=== PATIENT | male | born 1960 | race Caucasian/White ===

== ENCOUNTER → 2021-03-11 | Outpatient (CLI) | payer BC ==
[~2021-03-11] MED LIST: CLON0.3T PO; METO1TAB7 PO; ROSU5TAB5 PO; TORS20TA2 PO
== END ==
LOC: M LABSMTC 11:13
PROVIDERS: ATTEND Anesthesiology
DX: Z01.812 Encounter for preprocedural laboratory examination (principal); Z20.822 Contact with and (suspected) exposure to COVID-19

== ENCOUNTER 2021-03-16 08:09 | Day surgery (SDC) | payer BC, MEDICARE ==
[~2021-03-16] VITALS: Ht 172.7 cm; Wt 103.4 kg
[~2021-03-16 08:09] MED LIST changes: +LIDOCAINE 2% 100MG/5ML SDV (FOR ANES.) As Ordered ONE; +NS 1,000 ML IV ONE; +propofoL 200 MG/20 ML VIAL As Ordered ONE
[2021-03-16] MEDS ORDERED: AMPICILLIN SOD 1 GM in D5W MINI-BAG PLUS 50 ML IV ONE (09:00)
--- NOTE | 2021-03-16 11:07 | ROOR ---
Patient Name: Salvador Zelaya Procedure Date: 03/16/2021 10:20 AM Date of : 1960 Age: 60 Room: [facility] Gender: Male Note Status: Finalized Procedure: Colonoscopy Indications: Screening for colorectal malignant neoplasm Providers: Earnest Hill MD Referring MD: Giovani Cox DO Requesting Provider: Medicines: Monitored Anesthesia Care Complications: No immediate complications. Procedure: Pre-Anesthesia Assessment: - Prior to the procedure, a History and Physical was performed, and patient medications and allergies were reviewed. The patient is competent. The risks and benefits of the procedure and the sedation options and risks were discussed with the patient. All questions were answered and informed consent was obtained. Patient identification and proposed procedure were verified by the physician, the nurse and the anesthesiologist in the procedure room. Mental Status Examination: alert and oriented. Airway Examination: normal oropharyngeal airway and neck mobility. Respiratory Examination: clear to auscultation. CV Examination: normal. Prophylactic Antibiotics: The patient does not require prophylactic antibiotics. Prior Anticoagulants: The patient has taken no previous anticoagulant or antiplatelet agents. ASA Grade Assessment: II - A patient with mild systemic disease. After reviewing the risks and benefits, the patient was deemed in satisfactory condition to undergo the procedure. The anesthesia plan was to use monitored anesthesia care (MAC). Immediately prior to administration of medications, the patient was re-assessed for adequacy to receive sedatives. The heart rate, respiratory rate, oxygen saturations, blood pressure, adequacy of pulmonary ventilation, and response to care were monitored throughout the procedure. The physical status of the patient was re-assessed after the procedure. The Colonoscope was introduced through the anus and advanced to the cecum, identified by appendiceal orifice and ileocecal valve. The colonoscopy was performed without difficulty. The patient tolerated the procedure well. The quality of the bowel preparation was good. The ileocecal valve, appendiceal orifice, and rectum were photographed. Scope insertion time was 2 minutes. Scope withdrawal time was 9 minutes. The total duration of the procedure was 12 minutes. Findings: The perianal and digital rectal examinations were normal. The terminal ileum appeared normal. A large amount of semi-liquid stool was found from sigmoid to cecum, interfering with visualization. Lavage of the area was performed using a large amount, resulting in clearance with fair visualization. A 20 mm polyp was found in the hepatic flexure. The polyp was sessile. The polyp was removed with a hot snare. Resection and retrieval were complete. Verification of patient identification for the specimen was done by the physician and nurse using the patient's name, date and medical record number. Estimated blood loss was minimal. Two sessile polyps were found in the transverse colon. The polyps were 3 to 6 mm in size. These polyps were removed with a hot snare. Resection and retrieval were complete. Verification of patient identification for the specimen was done by the physician and nurse using the patient's name, date and medical record number. Estimated blood loss was minimal. Multiple small and large-mouthed diverticula were found in the sigmoid colon. There was no evidence of diverticular bleeding. Non-bleeding external and internal hemorrhoids were found during retroflexion. The hemorrhoids were medium-sized. Impression: - The examined portion of the ileum was normal. - Stool from sigmoid to cecum. - One 20 mm polyp at the hepatic flexure, removed with a hot snare. Resected and retrieved. - Two 3 to 6 mm polyps in the transverse colon, removed with a hot snare. Resected and retrieved. - Severe diverticulosis in the sigmoid colon. There was no evidence of diverticular bleeding. - Non-bleeding external and internal hemorrhoids. Recommendation: - Patient has a contact number available for emergencies. The signs and symptoms of potential delayed complications were discussed with the patient. Return to normal activities tomorrow. Written discharge instructions were provided to the patient. - High fiber diet. - Continue present medications. - Flagyl (metronidazole) 500 mg PO TID for 3 days. - Use fiber, for example Citrucel, Fibercon, Konsyl or Metamucil. - Await pathology results. - Repeat colonoscopy in 3 years for surveillance based on pathology results. - Telephone GI clinic for pathology results in 2 weeks. - Return to GI clinic if persistent symptoms or new symptoms. - Return to primary care physician. Procedure Code(s): --- Professional --- 07570, Colonoscopy, flexible; with removal of tumor(s), polyp(s), or other lesion(s) by snare technique Diagnosis Code(s): --- Professional --- K63.5, Polyp of colon Z12.11, Encounter for screening for malignant neoplasm of colon K64.8, Other hemorrhoids K57.30, Diverticulosis of large intestine without perforation or abscess without bleeding CPT copyright 2019 [employer]. All rights reserved. The codes documented in this report are preliminary and upon vending machine servicer review may be revised to meet current compliance requirements. Earnest Hill MD Earnest Hill MD 03/16/2021 11:06:50 AM Electronically signed by Earnest Hill MD Number of Addenda: 0 Note Initiated On: 03/16/2021 10:20 AM Estimated Blood Loss: Estimated blood loss was minimal.
[2021-03-16 11:35] VITALS: BP 164/74
== END 2021-03-16 11:30 | disposition home or self-care (01) ==
LOC: M OPP 08:09
PROVIDERS: ATTEND Internal Medicine Gastroenterology
DX: Z12.11 Encounter for screening for malignant neoplasm of colon (principal); K63.5 Polyp of colon; K57.30 Diverticulosis of large intestine without perforation or abscess without bleeding; K64.8 Other hemorrhoids; Z79.899 Other long term (current) drug therapy; N18.4 Chronic kidney disease, stage 4 (severe); Z99.2 Dependence on renal dialysis
CPT/HCPCS: 36415; 45385; 84132; 88305; J0290

== ENCOUNTER → 2021-12-23 | Outpatient (REF) | payer MEDICARE, BC ==
[~2021-12-23] MED LIST changes: -LIDOCAINE 2% 100MG/5ML SDV (FOR ANES.) As Ordered ONE; -NS 1,000 ML IV ONE; -propofoL 200 MG/20 ML VIAL As Ordered ONE
[2021-12-23 14:03] LABS: APPEARANCE, URINE HAZY (CLEAR); BACTERIA, URINE AUTO NEGATIVE (NEGATIVE); BILIRUBIN, URINE AUTO NEGATIVE (NEGATIVE); BLOOD, URINE BLOOD NEGATIVE (NEGATIVE); COLOR, URINE YELLOW (YELLOW); GLUCOSE, URINE (UA) AUTO 2+ mg/dL (NEGATIVE); KETONE, URINE AUTO NEGATIVE (NEGATIVE); LEUKOCYTE ESTERASE, URINE AUTO NEGATIVE (NEGATIVE); NITRITE, URINE AUTO NEGATIVE (NEGATIVE); PROTEIN, URINE AUTO 2+ mg/dL (NEGATIVE); RBC, URINE AUTO 1 /HPF (0-3); SPECIFIC GRAVITY URINE AUTO 1.012 (1.002-1.035); SQUAMOUS EPITHELIAL CELL UR AU 0 /HPF (0-6); UROBILINOGEN, URINE AUTO 0.2 mg/dL (0.0-2.0); WBC, URINE AUTO 8 /HPF (0-3)
== END ==
LOC: M SMT 13:05
PROVIDERS: ATTEND Nurse Practitioner Women's Health
DX: R30.9 Painful micturition, unspecified (principal)

== ENCOUNTER 2023-05-11 21:12 | Inpatient (IN) | payer MEDICARE, BC ==
[~2023-05-11] VITALS: Ht 167.6 cm; Wt 102.4 kg
[2023-05-11] MEDS: ROSUVASTATIN 10 MG TAB (CRESTOR) PO SCH (02:15)
[2023-05-11] MEDS: tiZANidine 4 MG TAB PO SCH (02:19)
[~2023-05-11 21:12] MED LIST changes: +CINA60TA3; +SEVE800T3
[2023-05-11] MEDS ORDERED: NS 1,000 ML IV ONE (21:25)
[2023-05-11] MEDS ORDERED: TIZA2CAP6 PO (21:30)
[2023-05-11] MEDS ORDERED: ZYRTTAB8 PO (21:30)
[2023-05-11] MEDS ORDERED: OMEG10002 PO (21:30)
[2023-05-11 21:46] LABS: VENOUS BASE EXCESS -5.3 (-2.0-2.0); VENOUS HCO3 21.9 MMOL/L (23.0-27.0); VENOUS O2 SATURATION 49.2 % (60.0-80.0); VENOUS PARTIAL PRESSURE CO2 49.4 mmHg (38.0-50.0); VENOUS PARTIAL PRESSURE O2 31.1 mmHg (30.0-50.0); VENOUS PH 7.264 UNITS (7.330-7.430); VENOUS STANDARD HCO3 19.2 MMOL/L; VENOUS TOTAL CO2 23.4 MMOL/L (24.0-28.0)
[2023-05-11 21:51] LABS: HEMATOCRIT 36.4 % (42.0-52.0); HEMOGLOBIN 11.6 g/dl (13.5-17.5); MEAN CORPUSCULAR HEMOGLOBIN 34.3 pg (27.0-33.0); MEAN CORPUSCULAR HGB CONC 31.9 g/dl (32.0-36.5); MEAN CORPUSCULAR VOLUME 107.7 fl (80.0-96.0); PLATELET COUNT, AUTOMATED 365 10^3/uL (150-450); RED BLOOD COUNT 3.38 10^6/uL (4.30-6.10); WHITE BLOOD COUNT 12.3 10^3/uL (4.0-10.0)
[2023-05-11] MEDS ORDERED: PIPERACILLIN/TAZOBACTAM SOD 4.5 GM in D5W MINI-BAG PLUS 50 ML IV ONE (21:55)
[2023-05-11] MEDS ORDERED: NS IV STA (21:55)
[2023-05-11] MEDS ORDERED: ISOVUE-370 76% 100ML VIAL As Ordered ONE (21:57)
[2023-05-11 22:03] LABS: INR 1.26; PROTHROMBIN TIME 15.4 SECONDS (12.5-14.5)
[2023-05-11 22:04] LABS: PARTIAL THROMBOPLASTIN TIME 27.3 SECONDS (24.8-34.2)
[2023-05-11 22:14] LABS: AMYLASE 84 U/L (30-118)
[2023-05-11 22:23] LABS: SOURCE, BODY FLUID PERITONEAL DIALYSATE
[2023-05-11 22:24] LABS: APPEARANCE, BODY FLUID CLEAR (CLEAR); PERITONEAL DIALYSATE FL COLOR COLORLESS (COLORLESS)
[2023-05-11 22:29] LABS: ALBUMIN 2.6 G/DL (3.2-5.2); ALKALINE PHOSPHATASE 126 U/L (46-116); ALT/SGPT 48 U/L (7.0-40); AST/SGOT 17 U/L (<34); BILIRUBIN,DIRECT 0.2 MG/DL (<0.4); BILIRUBIN,TOTAL 0.5 MG/DL (0.3-1.2); BLOOD UREA NITROGEN 43 MG/DL (9-23); CALCIUM LEVEL 9.5 MG/DL (8.3-10.6); CARBON DIOXIDE LEVEL 22 MMOL/L (20-31); CHLORIDE LEVEL 93 MMOL/L (98-107); CREATININE FOR GFR 10.78 MG/DL (0.70-1.30); GLOMERULAR FILTRATION RATE 5.2 (>49); GLUCOSE, FASTING 162 MG/DL (74-106); POTASSIUM SERUM 3.9 MMOL/L (3.5-5.1); SODIUM LEVEL 134 MMOL/L (136-145); TOTAL PROTEIN 5.6 G/DL (5.7-8.2)
[2023-05-11 22:31] LABS: SOURCE, BODY FLUID ALBUMIN PERITONEAL
[2023-05-11 22:33] LABS: LYMPHOCYTES 2 % (16-44); METAMYELOCYTES 8 % (0-0); MONOCYTES 6 % (0-5); MYELOCYTES 4 % (0-0); NEUTROPHILS 53 % (28-66); PLATELET ESTIMATE NORMAL (NORMAL); TOXIC VACUOLATION 1+
[2023-05-11 22:34] LABS: POLYCHROMASIA 1+
[2023-05-11 22:38] LABS: SOURCE, BODY FLUID TOT PROTEIN PERITONEAL; TOTAL PROTEIN, BODY FLUID < 2.0 G/DL (NOT ESTABLISHED)
[2023-05-11 22:44] LABS: SOURCE, BODY FLUID GLUCOSE PERITONEAL
[2023-05-11 22:54] LABS: PROCALCITONIN >50.00 ng/ml
[2023-05-12] VITALS (7 sets, daily range): BP systolic 92–138; BP diastolic 59–84; TEMP 97.1–98.6; O2SAT 91–96
[2023-05-12] MEDS ORDERED: VITMTA PO (01:27)
[2023-05-12] MEDS ORDERED: CETI-24 PO (01:27)
[2023-05-12] MEDS ORDERED: QUNO100C PO (01:27)
[2023-05-12] MEDS ORDERED: OMEG10002 PO (01:27)
[2023-05-12] MEDS ORDERED: SEVE800T3 PO (01:27)
[2023-05-12] MEDS ORDERED: SENS60TA PO (01:27)
[2023-05-12] MEDS ORDERED: ASPI-264 PO (01:27)
[2023-05-12] MEDS ORDERED: TIZA1TAB12 PO (01:27)
[2023-05-12] MEDS ORDERED: RESV1TAB PO (01:27)
[2023-05-12] MEDS ORDERED: HOME MED LIST COMPLETE! XX SCH (01:30)
[2023-05-12] MEDS ORDERED: NS 1,000 ML IV SCH (01:35)
[2023-05-12] MEDS: ACETAMINOPHEN TAB 650MG DOSE (2X325MG) PO PRN ×2 (02:14→10:35)
[2023-05-12] MEDS ORDERED: PILL CUTTER 1 EACH XX PRN (02:15)
[2023-05-12] MEDS ORDERED: MORPHINE 2 MG/ML 1ML VIAL IV ONE (03:00)
[2023-05-12 03:38] LABS: HEMATOCRIT 31.3 % (42.0-52.0); HEMOGLOBIN 10.4 g/dl (13.5-17.5); MEAN CORPUSCULAR HGB CONC 33.2 g/dl (32.0-36.5); MEAN CORPUSCULAR VOLUME 105.4 fl (80.0-96.0); PLATELET COUNT, AUTOMATED 290 10^3/uL (150-450); RED BLOOD COUNT 2.97 10^6/uL (4.30-6.10); WHITE BLOOD COUNT 12.9 10^3/uL (4.0-10.0)
[2023-05-12 04:02] LABS: ALBUMIN 2.2 G/DL (3.2-5.2); ALKALINE PHOSPHATASE 105 U/L (46-116); ALT/SGPT 40 U/L (7.0-40); AST/SGOT 20 U/L (<34); BILIRUBIN,TOTAL 0.5 MG/DL (0.3-1.2); BLOOD UREA NITROGEN 45 MG/DL (9-23); CALCIUM LEVEL 9.4 MG/DL (8.3-10.6); CARBON DIOXIDE LEVEL 23 MMOL/L (20-31); CHLORIDE LEVEL 95 MMOL/L (98-107); GLOMERULAR FILTRATION RATE 5.5 (>49); GLUCOSE, FASTING 110 MG/DL (74-106); MAGNESIUM LEVEL 1.5 MG/DL (1.8-2.4); POTASSIUM SERUM 4.7 MMOL/L (3.5-5.1); SODIUM LEVEL 133 MMOL/L (136-145)
[2023-05-12 04:36] LABS: ATYPICAL LYMPH 1 % (0-5); LYMPHOCYTES 1 % (16-44); METAMYELOCYTES 3 % (0-0); MONOCYTES 8 % (0-5); MYELOCYTES 3 % (0-0); NEUTROPHILS 61 % (28-66)
[2023-05-12 04:37] LABS: PLATELET ESTIMATE NORMAL (NORMAL)
[2023-05-12 04:38] LABS: TOXIC VACUOLATION 1+
[2023-05-12] MEDS: HEPARIN SOD (PORCINE) 5000UNITS/ML 1ML VIAL/SYRINGE SC SCH ×3 (05:22→22:07)
[2023-05-12] MEDS ORDERED: MAG SULF 1GM/100ML (MAG RUN) 1 GM in IV 1 EA IV ONE (07:00)
[2023-05-12 07:07] LABS: VANCOMYCIN RANDOM 11.2 UG/ML
[2023-05-12 07:25] LABS: PROCALCITONIN >50.00 ng/ml
[2023-05-12] MEDS: (RENVELA) SEVELAMER **CARBONate** 800 MG TAB PO SCH ×3 (08:00→17:50)
[2023-05-12] MEDS: CINACALCET 30 MG TAB (SENSIPAR) PO SCH ×2 (08:00→17:50)
[2023-05-12] MEDS ORDERED: VANCOMYCIN 1000MG/20ML VIAL IP ONE ×2 (08:00→22:00)
[2023-05-12] MEDS: PIPERACILLIN/TAZOBACTAM SOD 4.5 GM in D5W MINI-BAG PLUS 50 ML IV SCH ×2 (09:49→20:41)
[2023-05-12 15:04] LABS: APPEARANCE, BODY FLUID CLOUDY (CLEAR); PERITONEAL DIALYSATE FL COLOR COLORLESS (COLORLESS); SOURCE, BODY FLUID PERITONEAL DIALYSATE
[2023-05-12] MEDS: LR 1,000 ML IV SCH (15:56)
[2023-05-12] MEDS: GASTROGRAFIN SOLUTION 30ML PO SCH ×2 (15:56→16:39)
[2023-05-12] MEDS: tiZANidine 4 MG TAB PO SCH (20:41)
[2023-05-12] MEDS: ROSUVASTATIN 10 MG TAB (CRESTOR) PO SCH (20:41)
[2023-05-13 03:34] VITALS: BP 122/59; TEMP 97.2; O2SAT 100
[2023-05-13] MEDS: HEPARIN SOD (PORCINE) 5000UNITS/ML 1ML VIAL/SYRINGE SC SCH ×3 (06:15→22:07)
[2023-05-13 06:26] LABS: HEMOGLOBIN 9.2 g/dl (13.5-17.5); MEAN CORPUSCULAR HEMOGLOBIN 34.3 pg (27.0-33.0); MEAN CORPUSCULAR HGB CONC 32.9 g/dl (32.0-36.5); MEAN CORPUSCULAR VOLUME 104.5 fl (80.0-96.0); PLATELET COUNT, AUTOMATED 269 10^3/uL (150-450); RED BLOOD COUNT 2.68 10^6/uL (4.30-6.10); WHITE BLOOD COUNT 13.9 10^3/uL (4.0-10.0)
[2023-05-13 06:55] LABS: CALCIUM LEVEL 9.7 MG/DL (8.3-10.6); CREATININE FOR GFR 9.56 MG/DL (0.70-1.30); MAGNESIUM LEVEL 1.8 MG/DL (1.8-2.4); POTASSIUM SERUM 4.6 MMOL/L (3.5-5.1)
[2023-05-13 07:01] LABS: PROCALCITONIN >50.00 ng/ml
[2023-05-13 07:33] LABS: ATYPICAL LYMPH 5 % (0-5); EOSINOPHILS 1 % (0-3); LYMPHOCYTES 2 % (16-44); METAMYELOCYTES 1 % (0-0); MONOCYTES 5 % (0-5); NEUTROPHILS 80 % (28-66); PLATELET ESTIMATE NORMAL (NORMAL)
[2023-05-13] MEDS: (RENVELA) SEVELAMER **CARBONate** 800 MG TAB PO SCH ×3 (08:00→17:06)
[2023-05-13] MEDS: CINACALCET 30 MG TAB (SENSIPAR) PO SCH ×2 (08:00→17:06)
[2023-05-13] MEDS ORDERED: PANTOPRAZOLE 40MG VIAL IV ONE (08:00)
[2023-05-13 09:10] LABS: APPEARANCE, BODY FLUID HAZY (CLEAR); PERITONEAL FL COLOR COLORLESS (COLORLESS); SOURCE, BODY FLUID PERITONEAL
[2023-05-13] MEDS: PIPERACILLIN/TAZOBACTAM SOD 4.5 GM in D5W MINI-BAG PLUS 50 ML IV SCH ×2 (09:12→20:26)
[2023-05-13] MEDS ORDERED: HEPARIN SOD (PORCINE) 5000UNITS/ML 1ML VIAL/SYRINGE IP ONE (10:50)
[2023-05-13 12:25] VITALS: BP 139/83; TEMP 97.6; O2SAT 98
[2023-05-13 15:58] VITALS: BP 130/80; TEMP 98.5; O2SAT 98
[2023-05-13] MEDS: LR 1,000 ML IV SCH (16:26)
[2023-05-13 19:17] VITALS: BP 135/78; TEMP 97.5; O2SAT 97
[2023-05-13] MEDS: PANTOPRAZOLE 40MG VIAL IV SCH (20:26)
[2023-05-13] MEDS: ROSUVASTATIN 10 MG TAB (CRESTOR) PO SCH (20:26)
[2023-05-13] MEDS: tiZANidine 4 MG TAB PO SCH (20:27)
[2023-05-13 23:17] VITALS: BP 143/75; TEMP 97.4; O2SAT 94
[2023-05-14 03:21] VITALS: BP 124/73; TEMP 97.3; O2SAT 94
[2023-05-14] MEDS: HEPARIN SOD (PORCINE) 5000UNITS/ML 1ML VIAL/SYRINGE SC SCH ×3 (05:21→22:48)
[2023-05-14 06:51] LABS: SOURCE, BODY FLUID PERITONEAL DIALYSATE
[2023-05-14 06:52] LABS: APPEARANCE, BODY FLUID CLOUDY (CLEAR)
[2023-05-14] MEDS: (RENVELA) SEVELAMER **CARBONate** 800 MG TAB PO SCH ×3 (08:00→18:00)
[2023-05-14] MEDS: CINACALCET 30 MG TAB (SENSIPAR) PO SCH ×2 (08:00→18:00)
[2023-05-14 08:30] VITALS: BP 144/85; TEMP 97.8; O2SAT 93
[2023-05-14] MEDS: PIPERACILLIN/TAZOBACTAM SOD 4.5 GM in D5W MINI-BAG PLUS 50 ML IV SCH ×2 (09:32→20:00)
[2023-05-14] MEDS: PANTOPRAZOLE 40MG VIAL IV SCH ×2 (09:32→20:00)
[2023-05-14] MEDS ORDERED: HEPARIN SOD (PORCINE) 5000UNITS/ML 1ML VIAL/SYRINGE PD ONE (09:55)
[2023-05-14 10:23] LABS: BASO % 0.2 % (0.0-1.0); EOS # 0.2 10^3/uL (0.0-0.5); EOS % 1.3 % (0.0-3.0); HEMATOCRIT 28.7 % (42.0-52.0); HEMOGLOBIN 9.4 g/dl (13.5-17.5); LYMPH # 0.5 10^3/uL (1.5-5.0); LYMPH % 3.5 % (24.0-44.0); MEAN CORPUSCULAR HEMOGLOBIN 33.9 pg (27.0-33.0); MEAN CORPUSCULAR HGB CONC 32.8 g/dl (32.0-36.5); MEAN CORPUSCULAR VOLUME 103.6 fl (80.0-96.0); MONO # 1.1 10^3/uL (0.0-0.8); MONO % 8.3 % (2.0-8.0); NEUTROPHILS % 85.9 % (36.0-66.0); PLATELET COUNT, AUTOMATED 280 10^3/uL (150-450); RED BLOOD COUNT 2.77 10^6/uL (4.30-6.10); WHITE BLOOD COUNT 12.8 10^3/uL (4.0-10.0)
[2023-05-14 10:51] LABS: VANCOMYCIN RANDOM 16.8 UG/ML
[2023-05-14 11:10] LABS: BLOOD UREA NITROGEN 60 MG/DL (9-23); CALCIUM LEVEL 10.9 MG/DL (8.3-10.6); CARBON DIOXIDE LEVEL 25 MMOL/L (20-31); CHLORIDE LEVEL 93 MMOL/L (98-107); CREATININE FOR GFR 8.91 MG/DL (0.70-1.30); GLOMERULAR FILTRATION RATE 6.4 (>49); GLUCOSE, FASTING 102 MG/DL (74-106); POTASSIUM SERUM 4.2 MMOL/L (3.5-5.1); PROCALCITONIN >50.00 ng/ml; SODIUM LEVEL 131 MMOL/L (136-145)
[2023-05-14 11:55] VITALS: BP 137/74; TEMP 97.7; O2SAT 94
[2023-05-14] MEDS: LR 1,000 ML IV SCH (15:00)
[2023-05-14 15:43] VITALS: BP 159/84; TEMP 97.2; O2SAT 94
[2023-05-14] MEDS: ROSUVASTATIN 10 MG TAB (CRESTOR) PO SCH (20:00)
[2023-05-14] MEDS: tiZANidine 4 MG TAB PO SCH (20:00)
[2023-05-14 20:13] VITALS: BP 147/86; TEMP 97.5; O2SAT 96
[2023-05-14] MEDS ORDERED: VANCOMYCIN 1000MG/20ML VIAL IP ONE (22:00)
[2023-05-14] MEDS ORDERED: GENTAMICIN SULF 80MG/2ML VIAL IP ONE (22:00)
[2023-05-15] VITALS: BP 143/83; TEMP 97.8; O2SAT 96
[2023-05-15] MEDS: LR 1,000 ML IV SCH (03:20)
[2023-05-15 03:46] VITALS: BP 145/82; TEMP 97.8; O2SAT 95
[2023-05-15 06:05] LABS: BASO % 0.2 % (0.0-1.0); EOS # 0.3 10^3/uL (0.0-0.5); EOS % 2.4 % (0.0-3.0); HEMOGLOBIN 8.6 g/dl (13.5-17.5); LYMPH # 0.5 10^3/uL (1.5-5.0); LYMPH % 4.3 % (24.0-44.0); MEAN CORPUSCULAR HEMOGLOBIN 34.5 pg (27.0-33.0); MEAN CORPUSCULAR HGB CONC 33.1 g/dl (32.0-36.5); MEAN CORPUSCULAR VOLUME 104.4 fl (80.0-96.0); MONO # 1.2 10^3/uL (0.0-0.8); MONO % 10.5 % (2.0-8.0); NEUTROPHILS # 9.5 10^3/uL (1.5-8.5); NEUTROPHILS % 80.7 % (36.0-66.0); PLATELET COUNT, AUTOMATED 265 10^3/uL (150-450); RED BLOOD COUNT 2.49 10^6/uL (4.30-6.10); WHITE BLOOD COUNT 11.8 10^3/uL (4.0-10.0)
[2023-05-15] MEDS: HEPARIN SOD (PORCINE) 5000UNITS/ML 1ML VIAL/SYRINGE SC SCH ×3 (06:21→22:20)
[2023-05-15 06:42] LABS: BLOOD UREA NITROGEN 56 MG/DL (9-23); CARBON DIOXIDE LEVEL 29 MMOL/L (20-31); CHLORIDE LEVEL 94 MMOL/L (98-107); CREATININE FOR GFR 8.48 MG/DL (0.70-1.30); GLOMERULAR FILTRATION RATE 6.8 (>49); GLUCOSE, FASTING 81 MG/DL (74-106); POTASSIUM SERUM 4.1 MMOL/L (3.5-5.1); PROCALCITONIN >50.00 ng/ml; SODIUM LEVEL 133 MMOL/L (136-145)
[2023-05-15 07:43] VITALS: BP 129/75; TEMP 96.8; O2SAT 94
[2023-05-15 07:56] LABS: APPEARANCE, BODY FLUID HAZY (CLEAR); PERITONEAL DIALYSATE FL COLOR PALE YELLOW (COLORLESS); SOURCE, BODY FLUID PERITONEAL DIALYSATE
[2023-05-15] MEDS: CINACALCET 30 MG TAB (SENSIPAR) PO SCH ×2 (08:00→17:36)
[2023-05-15] MEDS: (RENVELA) SEVELAMER **CARBONate** 800 MG TAB PO SCH ×3 (08:00→17:36)
[2023-05-15] MEDS: PIPERACILLIN/TAZOBACTAM SOD 4.5 GM in D5W MINI-BAG PLUS 50 ML IV SCH (09:54)
[2023-05-15] MEDS: PANTOPRAZOLE 40MG VIAL IV SCH ×2 (09:54→20:31)
[2023-05-15 12:15] VITALS: BP 120/100; TEMP 98.1; O2SAT 94
[2023-05-15] MEDS ORDERED: ceFAZolin SOD 2 GM in IV 1 EA XX SCH (15:35)
[2023-05-15 16:28] VITALS: BP 146/81; TEMP 97.1; O2SAT 97
[2023-05-15] MEDS: ceFAZolin 1GM VIAL IP SCH (18:17)
[2023-05-15] MEDS: FLUCONAZOLE 100 MG TAB PO SCH (18:17)
[2023-05-15 20:00] VITALS: BP 155/85; TEMP 97.5; O2SAT 94
[2023-05-15] MEDS: ROSUVASTATIN 10 MG TAB (CRESTOR) PO SCH (20:31)
[2023-05-15] MEDS: tiZANidine 4 MG TAB PO SCH (20:31)
[2023-05-16] VITALS (7 sets, daily range): BP systolic 130–162; BP diastolic 75–98; TEMP 94.1–97.5; O2SAT 94–96
[2023-05-16 05:25] LABS: BASO % 0.2 % (0.0-1.0); EOS # 0.3 10^3/uL (0.0-0.5); EOS % 2.5 % (0.0-3.0); HEMATOCRIT 27.6 % (42.0-52.0); HEMOGLOBIN 9.1 g/dl (13.5-17.5); LYMPH # 0.6 10^3/uL (1.5-5.0); LYMPH % 5.1 % (24.0-44.0); MEAN CORPUSCULAR HEMOGLOBIN 34.1 pg (27.0-33.0); MEAN CORPUSCULAR VOLUME 103.4 fl (80.0-96.0); MONO # 1.4 10^3/uL (0.0-0.8); NEUTROPHILS # 8.2 10^3/uL (1.5-8.5); NEUTROPHILS % 74.7 % (36.0-66.0); PLATELET COUNT, AUTOMATED 243 10^3/uL (150-450); RED BLOOD COUNT 2.67 10^6/uL (4.30-6.10)
[2023-05-16 05:50] LABS: C REACTIVE PROTEIN QUANTITATIV 15.3 MG/DL (<1.0)
[2023-05-16 05:51] LABS: CALCIUM LEVEL 9.8 MG/DL (8.3-10.6); CREATININE FOR GFR 7.99 MG/DL (0.70-1.30); GLOMERULAR FILTRATION RATE 7.3 (>49); MAGNESIUM LEVEL 1.9 MG/DL (1.8-2.4); POTASSIUM SERUM 3.5 MMOL/L (3.5-5.1)
[2023-05-16 05:58] LABS: PROCALCITONIN 41.61 ng/ml
[2023-05-16] MEDS: HEPARIN SOD (PORCINE) 5000UNITS/ML 1ML VIAL/SYRINGE SC SCH ×3 (07:54→23:13)
[2023-05-16] MEDS: CINACALCET 30 MG TAB (SENSIPAR) PO SCH ×2 (08:00→18:07)
[2023-05-16] MEDS: (RENVELA) SEVELAMER **CARBONate** 800 MG TAB PO SCH ×3 (08:00→18:07)
[2023-05-16] MEDS: PANTOPRAZOLE 40MG VIAL IV SCH ×2 (08:00→20:36)
[2023-05-16 08:14] LABS: APPEARANCE, BODY FLUID HAZY (CLEAR); PERITONEAL DIALYSATE FL COLOR COLORLESS (COLORLESS); SOURCE, BODY FLUID PERITONEAL DIALYSATE
[2023-05-16] MEDS: POTASSIUM CHLORIDE 10MEQ SR TABLET PO SCH ×3 (11:24→20:35)
[2023-05-16] MEDS ORDERED: ISOVUE-370 76% 100ML VIAL As Ordered ONE (11:39)
[2023-05-16] MEDS: GASTROGRAFIN SOLUTION 30ML PO SCH ×2 (12:42→13:11)
[2023-05-16] MEDS: ACETAMINOPHEN TAB 650MG DOSE (2X325MG) PO PRN (15:00)
[2023-05-16] MEDS: ceFAZolin 1GM VIAL IP SCH (18:21)
[2023-05-16] MEDS: ROSUVASTATIN 10 MG TAB (CRESTOR) PO SCH (20:36)
[2023-05-16] MEDS: tiZANidine 4 MG TAB PO SCH (20:36)
[2023-05-16] MEDS ORDERED: GENTAMICIN SULF 80MG/2ML VIAL IP ONE (22:00)
[2023-05-17] VITALS: BP 144/82; TEMP 97.3; O2SAT 96
[2023-05-17] MEDS: ACETAMINOPHEN TAB 650MG DOSE (2X325MG) PO PRN (00:12)
[2023-05-17 04:00] VITALS: BP 138/86; TEMP 97.8; O2SAT 96
[2023-05-17 06:26] LABS: HEMATOCRIT 27.5 % (42.0-52.0); HEMOGLOBIN 9.2 g/dl (13.5-17.5); MEAN CORPUSCULAR HEMOGLOBIN 35.1 pg (27.0-33.0); MEAN CORPUSCULAR HGB CONC 33.5 g/dl (32.0-36.5); PLATELET COUNT, AUTOMATED 277 10^3/uL (150-450); RED BLOOD COUNT 2.62 10^6/uL (4.30-6.10); WHITE BLOOD COUNT 12.4 10^3/uL (4.0-10.0)
[2023-05-17] MEDS: HEPARIN SOD (PORCINE) 5000UNITS/ML 1ML VIAL/SYRINGE SC SCH ×3 (06:54→21:03)
[2023-05-17 06:56] LABS: ANISOCYTOSIS 1+; ATYPICAL LYMPH 2 % (0-5); BASOPHILS 1 % (0-1); EOSINOPHILS 2 % (0-3); LYMPHOCYTES 9 % (16-44); MONOCYTES 15 % (0-5); NEUTROPHILS 71 % (28-66); PLATELET ESTIMATE NORMAL (NORMAL); POIKILOCYTOSIS 1+
[2023-05-17 06:59] LABS: C REACTIVE PROTEIN QUANTITATIV 17.1 MG/DL (<1.0)
[2023-05-17 07:00] LABS: CREATININE FOR GFR 7.9 MG/DL (0.70-1.30); GLOMERULAR FILTRATION RATE 7.4 (>49); MAGNESIUM LEVEL 1.8 MG/DL (1.8-2.4); POTASSIUM SERUM 3.7 MMOL/L (3.5-5.1)
[2023-05-17 07:12] LABS: PROCALCITONIN 24.12 ng/ml
[2023-05-17 07:20] VITALS: BP 150/84; TEMP 97.5; O2SAT 97
[2023-05-17 07:55] LABS: APPEARANCE, BODY FLUID HAZY (CLEAR); PERITONEAL DIALYSATE FL COLOR PALE YELLOW (COLORLESS); SOURCE, BODY FLUID PERITONEAL DIALYSATE
[2023-05-17] MEDS: (RENVELA) SEVELAMER **CARBONate** 800 MG TAB PO SCH ×3 (08:05→17:08)
[2023-05-17] MEDS: CINACALCET 30 MG TAB (SENSIPAR) PO SCH ×2 (08:05→17:08)
[2023-05-17] MEDS: PANTOPRAZOLE 40MG VIAL IV SCH ×2 (08:06→21:03)
[2023-05-17] MEDS: POTASSIUM CHLORIDE 10MEQ SR TABLET PO SCH ×3 (08:06→21:03)
[2023-05-17 11:50] VITALS: BP 162/84; TEMP 98.3; O2SAT 95
[2023-05-17 13:52] LABS: CLOSTRIDIUM DIFFICILE PCR NEGATIVE (NEGATIVE)
[2023-05-17 16:50] VITALS: BP 138/88; TEMP 97.6; O2SAT 96
[2023-05-17] MEDS: LACTOBACILLUS ACIDOPHILUS CAP (BACID) PO SCH ×2 (17:01→21:03)
[2023-05-17] MEDS: FLUCONAZOLE 100 MG TAB PO SCH (17:01)
[2023-05-17] MEDS: ceFAZolin 1GM VIAL IP SCH (18:16)
[2023-05-17 19:33] VITALS: BP 127/74; TEMP 97.1; O2SAT 96
[2023-05-17] MEDS: ROSUVASTATIN 10 MG TAB (CRESTOR) PO SCH (21:03)
[2023-05-17] MEDS: tiZANidine 4 MG TAB PO SCH (21:03)
[2023-05-18] VITALS (7 sets, daily range): BP systolic 128–147; BP diastolic 70–90; TEMP 97.5–98.4; O2SAT 94–98
[2023-05-18 05:39] LABS: HEMATOCRIT 26.2 % (42.0-52.0); HEMOGLOBIN 8.6 g/dl (13.5-17.5); MEAN CORPUSCULAR HEMOGLOBIN 34.3 pg (27.0-33.0); MEAN CORPUSCULAR HGB CONC 32.8 g/dl (32.0-36.5); MEAN CORPUSCULAR VOLUME 104.4 fl (80.0-96.0); PLATELET COUNT, AUTOMATED 307 10^3/uL (150-450); RED BLOOD COUNT 2.51 10^6/uL (4.30-6.10); WHITE BLOOD COUNT 11.2 10^3/uL (4.0-10.0)
[2023-05-18 06:01] LABS: C REACTIVE PROTEIN QUANTITATIV 15.5 MG/DL (<1.0)
[2023-05-18 06:08] LABS: PROCALCITONIN 16.45 ng/ml
[2023-05-18 06:15] LABS: CALCIUM LEVEL 8.7 MG/DL (8.3-10.6); CREATININE FOR GFR 8.01 MG/DL (0.70-1.30); GLOMERULAR FILTRATION RATE 7.3 (>49); MAGNESIUM LEVEL 1.7 MG/DL (1.8-2.4); POTASSIUM SERUM 3.8 MMOL/L (3.5-5.1)
[2023-05-18 06:32] LABS: ANISOCYTOSIS 1+; EOSINOPHILS 3 % (0-3); LYMPHOCYTES 5 % (16-44); METAMYELOCYTES 3 % (0-0); MONOCYTES 10 % (0-5); NEUTROPHILS 78 % (28-66); PLATELET ESTIMATE NORMAL (NORMAL)
[2023-05-18] MEDS: HEPARIN SOD (PORCINE) 5000UNITS/ML 1ML VIAL/SYRINGE SC SCH (06:40)
[2023-05-18] MEDS ORDERED: MAGNESIUM OXIDE 400MG TAB (MAG-OX) PO ONE (07:30)
[2023-05-18 07:35] LABS: APPEARANCE, BODY FLUID CLEAR (CLEAR); PERITONEAL DIALYSATE FL COLOR COLORLESS (COLORLESS); SOURCE, BODY FLUID PERITONEAL DIALYSATE
[2023-05-18] MEDS: (RENVELA) SEVELAMER **CARBONate** 800 MG TAB PO SCH ×3 (07:55→17:55)
[2023-05-18] MEDS: CINACALCET 30 MG TAB (SENSIPAR) PO SCH ×2 (07:55→17:55)
[2023-05-18] MEDS: POTASSIUM CHLORIDE 10MEQ SR TABLET PO SCH ×3 (08:02→20:32)
[2023-05-18] MEDS: LACTOBACILLUS ACIDOPHILUS CAP (BACID) PO SCH ×4 (08:02→20:32)
[2023-05-18] MEDS: PANTOPRAZOLE 40MG VIAL IV SCH ×2 (08:02→20:31)
[2023-05-18] MEDS: ceFAZolin 1GM VIAL IP SCH (18:07)
[2023-05-18] MEDS: tiZANidine 4 MG TAB PO SCH (20:31)
[2023-05-18] MEDS: ROSUVASTATIN 10 MG TAB (CRESTOR) PO SCH (20:32)
[2023-05-19] VITALS (10 sets, daily range): BP systolic 113–141; BP diastolic 63–85; TEMP 96.9–98.1; O2SAT 93–96
[2023-05-19 04:50] LABS: BASO % 0.2 % (0.0-1.0); EOS # 0.3 10^3/uL (0.0-0.5); EOS % 2.1 % (0.0-3.0); HEMATOCRIT 26.5 % (42.0-52.0); HEMOGLOBIN 8.9 g/dl (13.5-17.5); LYMPH # 0.6 10^3/uL (1.5-5.0); MEAN CORPUSCULAR HEMOGLOBIN 34.5 pg (27.0-33.0); MEAN CORPUSCULAR HGB CONC 33.6 g/dl (32.0-36.5); MEAN CORPUSCULAR VOLUME 102.7 fl (80.0-96.0); MONO # 1.1 10^3/uL (0.0-0.8); MONO % 9.1 % (2.0-8.0); NEUTROPHILS # 9.6 10^3/uL (1.5-8.5); NEUTROPHILS % 78.9 % (36.0-66.0); PLATELET COUNT, AUTOMATED 345 10^3/uL (150-450); RED BLOOD COUNT 2.58 10^6/uL (4.30-6.10); WHITE BLOOD COUNT 12.2 10^3/uL (4.0-10.0)
[2023-05-19 05:06] LABS: C REACTIVE PROTEIN QUANTITATIV 14.1 MG/DL (<1.0)
[2023-05-19 05:07] LABS: CREATININE FOR GFR 7.97 MG/DL (0.70-1.30); GLOMERULAR FILTRATION RATE 7.3 (>49); MAGNESIUM LEVEL 1.7 MG/DL (1.8-2.4); POTASSIUM SERUM 3.7 MMOL/L (3.5-5.1)
[2023-05-19 05:15] LABS: PROCALCITONIN 10.64 ng/ml
[2023-05-19] MEDS ORDERED: MAGNESIUM OXIDE 400MG TAB (MAG-OX) PO ONE (07:15)
[2023-05-19 07:46] LABS: SOURCE, BODY FLUID PERITONEAL DIALYSATE
[2023-05-19 07:47] LABS: APPEARANCE, BODY FLUID HAZY (CLEAR); PERITONEAL DIALYSATE FL COLOR PALE YELLOW (COLORLESS)
[2023-05-19] MEDS: CINACALCET 30 MG TAB (SENSIPAR) PO SCH ×2 (08:00→18:33)
[2023-05-19] MEDS: (RENVELA) SEVELAMER **CARBONate** 800 MG TAB PO SCH ×3 (08:00→18:33)
[2023-05-19] MEDS: LACTOBACILLUS ACIDOPHILUS CAP (BACID) PO SCH ×3 (08:00→18:33)
[2023-05-19] MEDS: POTASSIUM CHLORIDE 10MEQ SR TABLET PO SCH ×2 (09:19→15:50)
[2023-05-19] MEDS: PANTOPRAZOLE 40MG VIAL IV SCH (09:19)
[2023-05-19] MEDS ORDERED: LIDOCAINE 1% MDV 20ML VIAL As Ordered ONE (10:00)
[2023-05-19] MEDS ORDERED: HEPARIN 1,000UNITS/ML 10ML VIAL (FOR RADIOLOGY & DIALYSIS ONLY) As Ordered ONE (10:00)
[2023-05-19] MEDS ORDERED: fentaNYL 100 MCG/2 ML INJECTION As Ordered ONE ×2 (10:59→12:12)
[2023-05-19] MEDS ORDERED: MIDAZOLAM INJ 2MG/2ML VIAL As Ordered ONE ×2 (10:59→12:12)
[2023-05-19] MEDS ORDERED: ONDANSETRON 4MG 2ML VIAL As Ordered ONE (12:11)
[2023-05-19] MEDS ORDERED: ROCURONIUM BROMIDE 50MG/5ML VIAL As Ordered ONE (12:11)
[2023-05-19] MEDS ORDERED: LIDOCAINE 2% 100MG/5ML SDV (FOR ANES.) As Ordered ONE (12:11)
[2023-05-19] MEDS ORDERED: SUGAMMADEX SODIUM 500 MG/5 ML VIAL (BRIDION) As Ordered ONE (12:11)
[2023-05-19] MEDS ORDERED: propofoL 200 MG/20 ML VIAL As Ordered ONE (12:11)
[2023-05-19] MEDS ORDERED: dexmedeTOMIDine (4MCG/ML)200MCG/50ML BTL (PRECEDEX) As Ordered ONE (12:12)
[2023-05-19] MEDS ORDERED: ACETAMINOPHEN 1000MG 100ML IV BAG As Ordered ONE (12:12)
[2023-05-19 12:47] LABS: VANCOMYCIN RANDOM 13.2 UG/ML
[2023-05-19] MEDS ORDERED: LIDOCAINE W/EPINEPHRINE 1% 20ML VIAL As Ordered ONE (13:00)
[2023-05-19] MEDS ORDERED: PHENYLephrine 500MCG 5ML (100MCG/ML) SYRINGE As Ordered ONE (13:51)
[2023-05-19] MEDS ORDERED: oxyCODONE 5MG TAB PO PRN (14:25)
[2023-05-19] MEDS ORDERED: HYDROMORPHONE HCL 0.5 MG/ 0.5 ML SYRINGE IV PRN (14:25)
[2023-05-19] MEDS ORDERED: LR 1,000 ML IV SCH (14:25)
[2023-05-19] MEDS ORDERED: ONDANSETRON 4MG 2ML VIAL IV PRN (14:25)
[2023-05-19] MEDS ORDERED: fentaNYL 100 MCG/2 ML INJECTION IV PRN (14:25)
[2023-05-19] MEDS: FLUCONAZOLE 100 MG TAB PO SCH (17:54)
[2023-05-19] MEDS ORDERED: VANCOMYCIN HCL 1,000 MG, VIAL MATE ADAPTER 1 EACH in D5W 250 ML IV ONE (18:00)
[2023-05-20] MEDS: ACETAMINOPHEN TAB 650MG DOSE (2X325MG) PO PRN ×3 (00:36→22:01)
[2023-05-20] MEDS: tiZANidine 4 MG TAB PO SCH ×2 (00:36→20:20)
[2023-05-20] MEDS: ROSUVASTATIN 10 MG TAB (CRESTOR) PO SCH ×2 (00:36→20:19)
[2023-05-20] MEDS: LACTOBACILLUS ACIDOPHILUS CAP (BACID) PO SCH ×5 (00:37→20:19)
[2023-05-20] MEDS: POTASSIUM CHLORIDE 10MEQ SR TABLET PO SCH ×2 (00:37→07:48)
[2023-05-20] MEDS: ceFAZolin SOD 1 GM in D5W MINI-BAG PLUS 50 ML IV SCH ×2 (00:38→20:20)
[2023-05-20] MEDS: PANTOPRAZOLE 40MG VIAL IV SCH ×3 (00:38→20:19)
[2023-05-20 03:44] VITALS: BP 132/63; TEMP 96.5; O2SAT 97
[2023-05-20] MEDS ORDERED: HEPARIN 1,000UNITS/ML 10ML VIAL (FOR RADIOLOGY & DIALYSIS ONLY) XX SCH (06:45)
[2023-05-20] MEDS ORDERED: SODIUM CHLORIDE 0.9% 1000ML IV PRN (06:45)
[2023-05-20] MEDS ORDERED: DARBEPOETIN 200MCG/0.4ML *DIALYSIS* SYRINGE IV SCH (06:45)
[2023-05-20] MEDS ORDERED: HEPARIN 1,000UNITS/ML 10ML VIAL (FOR RADIOLOGY & DIALYSIS ONLY) IV PRN (06:45)
[2023-05-20 07:36] LABS: BASO % 0.1 % (0.0-1.0); EOS % 0.2 % (0.0-3.0); HEMOGLOBIN 8.2 g/dl (13.5-17.5); LYMPH # 0.5 10^3/uL (1.5-5.0); LYMPH % 2.7 % (24.0-44.0); MEAN CORPUSCULAR HEMOGLOBIN 34.7 pg (27.0-33.0); MEAN CORPUSCULAR HGB CONC 32.8 g/dl (32.0-36.5); MEAN CORPUSCULAR VOLUME 105.9 fl (80.0-96.0); MONO # 0.9 10^3/uL (0.0-0.8); MONO % 5.4 % (2.0-8.0); NEUTROPHILS # 15.6 10^3/uL (1.5-8.5); PLATELET COUNT, AUTOMATED 373 10^3/uL (150-450); RED BLOOD COUNT 2.36 10^6/uL (4.30-6.10); WHITE BLOOD COUNT 17.5 10^3/uL (4.0-10.0)
[2023-05-20] MEDS: (RENVELA) SEVELAMER **CARBONate** 800 MG TAB PO SCH ×3 (07:47→18:19)
[2023-05-20] MEDS: CINACALCET 30 MG TAB (SENSIPAR) PO SCH ×2 (07:47→18:18)
[2023-05-20 08:00] VITALS: BP 133/68; TEMP 96.6; O2SAT 97
[2023-05-20 08:11] LABS: HEPATITIS B SURFACE ANTIBODY POSITIVE (POSITIVE)
[2023-05-20 08:43] LABS: HEPATITIS C VIRUS ABY INDEX 0.17 INDEX (<0.8)
[2023-05-20 08:44] LABS: HEPATITIS B CORE ANTIBODY IGM NEGATIVE (NEGATIVE)
[2023-05-20 08:50] LABS: BLOOD UREA NITROGEN 49 MG/DL (9-23); CALCIUM LEVEL 8.4 MG/DL (8.3-10.6); CARBON DIOXIDE LEVEL 25 MMOL/L (20-31); CHLORIDE LEVEL 96 MMOL/L (98-107); CREATININE FOR GFR 8.93 MG/DL (0.70-1.30); GLOMERULAR FILTRATION RATE 6.4 (>49); GLUCOSE, FASTING 90 MG/DL (74-106); POTASSIUM SERUM 4.7 MMOL/L (3.5-5.1); SODIUM LEVEL 132 MMOL/L (136-145)
[2023-05-20 15:57] VITALS: BP 131/71; TEMP 97; O2SAT 95
[2023-05-20] MEDS ORDERED: VANCOMYCIN HCL 1,000 MG, VIAL MATE ADAPTER 1 EACH in NS 250 ML IV SCH (16:00)
[2023-05-20] MEDS: FLUCONAZOLE 100 MG TAB PO SCH (18:19)
[2023-05-20 20:55] VITALS: BP 138/80; TEMP 97.7; O2SAT 100
[2023-05-20 22:57] VITALS: BP 123/79; TEMP 97.7; O2SAT 96
[2023-05-21 06:40] VITALS: BP 125/80; TEMP 97.9; O2SAT 96
[2023-05-21] MEDS ORDERED: HEPARIN 1,000UNITS/ML 10ML VIAL (FOR RADIOLOGY & DIALYSIS ONLY) XX SCH (06:55)
[2023-05-21] MEDS ORDERED: SODIUM CHLORIDE 0.9% 1000ML IV PRN (06:55)
[2023-05-21] MEDS ORDERED: HEPARIN 1,000UNITS/ML 10ML VIAL (FOR RADIOLOGY & DIALYSIS ONLY) IV PRN (06:55)
[2023-05-21 07:23] LABS: HEMATOCRIT 28.5 % (42.0-52.0); HEMOGLOBIN 9.1 g/dl (13.5-17.5); MEAN CORPUSCULAR HEMOGLOBIN 34.3 pg (27.0-33.0); MEAN CORPUSCULAR HGB CONC 31.9 g/dl (32.0-36.5); MEAN CORPUSCULAR VOLUME 107.5 fl (80.0-96.0); PLATELET COUNT, AUTOMATED 393 10^3/uL (150-450); RED BLOOD COUNT 2.65 10^6/uL (4.30-6.10); WHITE BLOOD COUNT 22.5 10^3/uL (4.0-10.0)
[2023-05-21] MEDS: (RENVELA) SEVELAMER **CARBONate** 800 MG TAB PO SCH ×3 (07:40→18:31)
[2023-05-21] MEDS: LACTOBACILLUS ACIDOPHILUS CAP (BACID) PO SCH ×4 (07:40→20:13)
[2023-05-21] MEDS: CINACALCET 30 MG TAB (SENSIPAR) PO SCH ×2 (07:40→18:31)
[2023-05-21] MEDS: PANTOPRAZOLE 40MG VIAL IV SCH ×2 (07:41→20:13)
[2023-05-21 07:43] LABS: ALBUMIN 1.7 G/DL (3.2-5.2); CALCIUM LEVEL 9.1 MG/DL (8.3-10.6); CREATININE FOR GFR 6.3 MG/DL (0.70-1.30); GLOMERULAR FILTRATION RATE 9.6 (>49); PHOSPHORUS LEVEL 4.1 MG/DL (2.4-5.1); POTASSIUM SERUM 4.1 MMOL/L (3.5-5.1)
[2023-05-21 07:59] LABS: C REACTIVE PROTEIN QUANTITATIV 16.8 MG/DL (<1.0)
[2023-05-21] MEDS ORDERED: ISOVUE-370 76% 100ML VIAL As Ordered ONE (12:06)
[2023-05-21 14:11] VITALS: BP 130/89; TEMP 98.1; O2SAT 97
[2023-05-21 20:07] VITALS: TEMP 98.8; O2SAT 96
[2023-05-21] MEDS: ceFAZolin SOD 1 GM in D5W MINI-BAG PLUS 50 ML IV SCH (20:13)
[2023-05-21] MEDS: ROSUVASTATIN 10 MG TAB (CRESTOR) PO SCH (20:13)
[2023-05-21] MEDS: tiZANidine 4 MG TAB PO SCH (20:13)
[2023-05-21 21:18] VITALS: BP 130/88
[2023-05-22] MEDS ORDERED: VANCOMYCIN HCL 1,000 MG, VIAL MATE ADAPTER 1 EACH in D5W 250 ML IV ONE ×3
[2023-05-22 05:18] VITALS: BP 133/90; TEMP 98.1; O2SAT 96
[2023-05-22 06:50] LABS: BASO % 0.1 % (0.0-1.0); EOS # 0.1 10^3/uL (0.0-0.5); EOS % 0.6 % (0.0-3.0); HEMATOCRIT 24.1 % (42.0-52.0); HEMOGLOBIN 7.5 g/dl (13.5-17.5); LYMPH # 0.5 10^3/uL (1.5-5.0); LYMPH % 2.7 % (24.0-44.0); MEAN CORPUSCULAR HEMOGLOBIN 34.1 pg (27.0-33.0); MEAN CORPUSCULAR HGB CONC 31.1 g/dl (32.0-36.5); MEAN CORPUSCULAR VOLUME 109.5 fl (80.0-96.0); MONO # 1.5 10^3/uL (0.0-0.8); NEUTROPHILS # 16.1 10^3/uL (1.5-8.5); NEUTROPHILS % 86.2 % (36.0-66.0); PLATELET COUNT, AUTOMATED 388 10^3/uL (150-450); WHITE BLOOD COUNT 18.6 10^3/uL (4.0-10.0)
[2023-05-22 07:09] LABS: C REACTIVE PROTEIN QUANTITATIV 18.2 MG/DL (<1.0)
[2023-05-22 07:10] LABS: CALCIUM LEVEL 8.8 MG/DL (8.3-10.6); CREATININE FOR GFR 5.08 MG/DL (0.70-1.30); GLOMERULAR FILTRATION RATE 12.3 (>49); POTASSIUM SERUM 4.2 MMOL/L (3.5-5.1)
[2023-05-22 07:17] LABS: PROCALCITONIN 5.28 ng/ml
[2023-05-22] MEDS: CINACALCET 30 MG TAB (SENSIPAR) PO SCH ×2 (08:47→17:22)
[2023-05-22] MEDS: (RENVELA) SEVELAMER **CARBONate** 800 MG TAB PO SCH ×3 (08:47→17:22)
[2023-05-22] MEDS: PANTOPRAZOLE 40MG VIAL IV SCH ×2 (08:47→21:39)
[2023-05-22] MEDS: LACTOBACILLUS ACIDOPHILUS CAP (BACID) PO SCH ×4 (08:47→21:39)
[2023-05-22] MEDS: ACETAMINOPHEN TAB 650MG DOSE (2X325MG) PO PRN (08:56)
[2023-05-22 12:39] LABS: VANCOMYCIN RANDOM 18.4 UG/ML
[2023-05-22 14:00] VITALS: BP 133/90; TEMP 97.2; O2SAT 95
[2023-05-22] MEDS: HEPARIN SOD (PORCINE) 5000UNITS/ML 1ML VIAL/SYRINGE SQ SCH ×2 (15:22→21:37)
[2023-05-22] MEDS ORDERED: VANCOMYCIN HCL 1,000 MG, VIAL MATE ADAPTER 1 EACH in D5W 250 ML IV SCH (18:00)
[2023-05-22 19:38] VITALS: BP 175/96; TEMP 98.2; O2SAT 98
[2023-05-22 19:43] VITALS: BP 106/67; TEMP 98.1; O2SAT 91
[2023-05-22] MEDS: ROSUVASTATIN 10 MG TAB (CRESTOR) PO SCH (21:38)
[2023-05-22] MEDS: METOPROLOL TART 12.5 MG PER 1/2 TAB PO SCH (21:38)
[2023-05-22] MEDS: tiZANidine 4 MG TAB PO SCH (21:39)
[2023-05-22] MEDS: ceFAZolin SOD 1 GM in D5W MINI-BAG PLUS 50 ML IV SCH (21:39)
[2023-05-22 23:15] VITALS: BP 155/90
[2023-05-23 05:20] VITALS: BP 144/81; TEMP 97.9; O2SAT 96
[2023-05-23] MEDS ORDERED: SODIUM CHLORIDE 0.9% 1000ML IV PRN (06:00)
[2023-05-23] MEDS ORDERED: HEPARIN 1,000UNITS/ML 10ML VIAL (FOR RADIOLOGY & DIALYSIS ONLY) IV PRN (06:00)
[2023-05-23] MEDS ORDERED: HEPARIN 1,000UNITS/ML 10ML VIAL (FOR RADIOLOGY & DIALYSIS ONLY) XX SCH (06:00)
[2023-05-23] MEDS: HEPARIN SOD (PORCINE) 5000UNITS/ML 1ML VIAL/SYRINGE SQ SCH ×3 (06:40→21:01)
[2023-05-23 07:10] LABS: BASO # 0.1 10^3/uL (0.0-0.2); BASO % 0.3 % (0.0-1.0); EOS # 0.2 10^3/uL (0.0-0.5); EOS % 0.9 % (0.0-3.0); HEMOGLOBIN 8.2 g/dl (13.5-17.5); LYMPH # 0.5 10^3/uL (1.5-5.0); LYMPH % 2.8 % (24.0-44.0); MEAN CORPUSCULAR HEMOGLOBIN 33.7 pg (27.0-33.0); MEAN CORPUSCULAR HGB CONC 31.5 g/dl (32.0-36.5); MONO % 8.2 % (2.0-8.0); NEUTROPHILS # 16.6 10^3/uL (1.5-8.5); NEUTROPHILS % 84.8 % (36.0-66.0); PLATELET COUNT, AUTOMATED 416 10^3/uL (150-450); RED BLOOD COUNT 2.43 10^6/uL (4.30-6.10); WHITE BLOOD COUNT 19.6 10^3/uL (4.0-10.0)
[2023-05-23 07:33] LABS: C REACTIVE PROTEIN QUANTITATIV 17.3 MG/DL (<1.0)
[2023-05-23 08:11] LABS: MONO # 1.6 10^3/uL (0.0-0.8)
[2023-05-23 08:38] LABS: VANCOMYCIN RANDOM 15.9 UG/ML
[2023-05-23 09:04] LABS: CALCIUM LEVEL 8.8 MG/DL (8.3-10.6); CREATININE FOR GFR 6.89 MG/DL (0.70-1.30); GLOMERULAR FILTRATION RATE 8.7 (>49); POTASSIUM SERUM 4.1 MMOL/L (3.5-5.1)
[2023-05-23] MEDS: LACTOBACILLUS ACIDOPHILUS CAP (BACID) PO SCH ×4 (09:39→20:58)
[2023-05-23] MEDS: (RENVELA) SEVELAMER **CARBONate** 800 MG TAB PO SCH ×3 (09:39→18:00)
[2023-05-23] MEDS: CINACALCET 30 MG TAB (SENSIPAR) PO SCH ×2 (09:39→18:00)
[2023-05-23] MEDS: METOPROLOL TART 12.5 MG PER 1/2 TAB PO SCH ×2 (09:39→20:58)
[2023-05-23] MEDS: PANTOPRAZOLE 40MG VIAL IV SCH (09:40)
[2023-05-23] MEDS ORDERED: VANCOMYCIN HCL 500 MG in D5W MINI-BAG PLUS 100 ML IV ONE (10:00)
[2023-05-23 15:39] LABS: PROCALCITONIN 3.75 ng/ml
[2023-05-23] MEDS ORDERED: VANCOMYCIN HCL 750 MG, VIAL MATE ADAPTER 1 EACH in D5W 250 ML IV SCH (16:00)
[2023-05-23 20:58] VITALS: BP 104/68
[2023-05-23] MEDS: tiZANidine 4 MG TAB PO SCH (20:59)
[2023-05-23] MEDS: FLUCONAZOLE 100 MG TAB PO SCH (20:59)
[2023-05-23] MEDS: ROSUVASTATIN 10 MG TAB (CRESTOR) PO SCH (21:00)
[2023-05-23] MEDS: ceFAZolin SOD 1 GM in D5W MINI-BAG PLUS 50 ML IV SCH (21:01)
[2023-05-23 21:40] VITALS: BP 103/70; TEMP 97.7; O2SAT 98
[2023-05-24] MEDS: ACETAMINOPHEN TAB 650MG DOSE (2X325MG) PO PRN (00:22)
[2023-05-24 05:40] VITALS: BP 103/65; TEMP 97.5; O2SAT 96
[2023-05-24] MEDS ORDERED: SODIUM CHLORIDE 0.9% 1000ML IV PRN (06:00)
[2023-05-24] MEDS ORDERED: HEPARIN 1,000UNITS/ML 10ML VIAL (FOR RADIOLOGY & DIALYSIS ONLY) XX SCH (06:00)
[2023-05-24] MEDS ORDERED: HEPARIN 1,000UNITS/ML 10ML VIAL (FOR RADIOLOGY & DIALYSIS ONLY) IV PRN (06:00)
[2023-05-24] MEDS: LACTOBACILLUS ACIDOPHILUS CAP (BACID) PO SCH (06:18)
[2023-05-24] MEDS: HEPARIN SOD (PORCINE) 5000UNITS/ML 1ML VIAL/SYRINGE SQ SCH (06:19)
[2023-05-24 07:07] LABS: CALCIUM LEVEL 8.5 MG/DL (8.3-10.6); CREATININE FOR GFR 4.64 MG/DL (0.70-1.30); GLOMERULAR FILTRATION RATE 13.7 (>49); POTASSIUM SERUM 3.9 MMOL/L (3.5-5.1); VANCOMYCIN RANDOM 16.1 UG/ML
[2023-05-24 07:07] LABS: BASO % 0.3 % (0.0-1.0); EOS # 0.1 10^3/uL (0.0-0.5); EOS % 0.6 % (0.0-3.0); HEMATOCRIT 27.4 % (42.0-52.0); HEMOGLOBIN 8.8 g/dl (13.5-17.5); LYMPH # 0.6 10^3/uL (1.5-5.0); LYMPH % 3.9 % (24.0-44.0); MEAN CORPUSCULAR HEMOGLOBIN 34.1 pg (27.0-33.0); MEAN CORPUSCULAR HGB CONC 32.1 g/dl (32.0-36.5); MEAN CORPUSCULAR VOLUME 106.2 fl (80.0-96.0); MONO # 1.4 10^3/uL (0.0-0.8); MONO % 8.7 % (2.0-8.0); NEUTROPHILS # 13.3 10^3/uL (1.5-8.5); NEUTROPHILS % 84.4 % (36.0-66.0); PLATELET COUNT, AUTOMATED 425 10^3/uL (150-450); RED BLOOD COUNT 2.58 10^6/uL (4.30-6.10); WHITE BLOOD COUNT 15.8 10^3/uL (4.0-10.0)
[2023-05-24] MEDS: (RENVELA) SEVELAMER **CARBONate** 800 MG TAB PO SCH ×2 (07:29→12:18)
[2023-05-24] MEDS: CINACALCET 30 MG TAB (SENSIPAR) PO SCH (07:29)
[2023-05-24 07:39] LABS: ERYTHROCYTE SEDIMENTATION RATE 41 mm/hr (0-20)
[2023-05-24 07:43] VITALS: BP 123/74
[2023-05-24] MEDS ORDERED: VANCOMYCIN HCL 500 MG in D5W MINI-BAG PLUS 100 ML IV ONE (09:00)
[2023-05-24] MEDS ORDERED: RISATAB3 PO (12:01)
[2023-05-24] MEDS ORDERED: METO1TAB87 PO (12:01)
[2023-05-24] MEDS ORDERED: FLUC200T4 PO (12:05)
[2023-05-24] MEDS: METOPROLOL TART 12.5 MG PER 1/2 TAB PO SCH (12:17)
[2023-05-24] MEDS ORDERED: LACTOBACILLUS ACIDOPHILUS CAP (BACID) PO SCH (12:30)
[2023-05-24] MEDS ORDERED: FLUC100T3 PO (12:52)
[2023-05-24] MEDS ORDERED: [UNRECOGNIZED DRUG - CODE] IV (12:52)
[2023-05-24] MEDS ORDERED: CEFA2PLA3 IV (12:52)
[2023-05-24] MEDS ORDERED: VANCOMYCIN HCL 1,000 MG, VIAL MATE ADAPTER 1 EACH in D5W 250 ML IV ONE (13:30)
[2023-05-24] MEDS ORDERED: HEPARIN SOD (PORCINE) 5000UNITS/ML 1ML VIAL/SYRINGE SQ SCH (14:00)
[2023-05-24] MEDS ORDERED: FLUCONAZOLE 100 MG TAB PO SCH (16:00)
[2023-05-24] MEDS ORDERED: APIXABAN 5 MG TAB (ELIQUIS) PO SCH (21:00)
[2023-05-25] MEDS ORDERED: VANCOMYCIN HCL 1,000 MG, VIAL MATE ADAPTER 1 EACH in D5W 250 ML IV SCH (16:00)
== END 2023-05-24 16:05 | disposition home or self-care (01) | DRG 907 ==
LOC: M ED 21:12 → M ED INP 23:51 → M PCU 05-12 01:50 → M MS5PR 05-20 22:31
PROVIDERS: ADMIT Family Medicine; ATTEND Student in an Organized Health Care Education/Training Program
PROC: 0WQF0ZZ Repair Abdominal Wall, Open Approach (ICD-10-PCS; 2023-05-19)
PROC: 0JH63XZ Insertion of Tunneled Vascular Access Device into Chest Subcutaneous Tissue and Fascia, Percutaneous Approach (ICD-10-PCS; principal; 2023-05-19 09:00)
PROC: 02HV33Z Insertion of Infusion Device into Superior Vena Cava, Percutaneous Approach (ICD-10-PCS; 2023-05-19 12:00)
DX: T85.71XA Infection and inflammatory reaction due to peritoneal dialysis catheter, initial encounter (principal); A41.01 Sepsis due to Methicillin susceptible Staphylococcus aureus; N18.6 End stage renal disease; K65.8 Other peritonitis; J18.9 Pneumonia, unspecified organism; R65.20 Severe sepsis without septic shock; N00.2 Acute nephritic syndrome with diffuse membranous glomerulonephritis; J98.11 Atelectasis; E87.1 Hypo-osmolality and hyponatremia; K56.600 Partial intestinal obstruction, unspecified as to cause; E87.20 Acidosis, unspecified; E78.5 Hyperlipidemia, unspecified; K42.9 Umbilical hernia without obstruction or gangrene; M54.50 Low back pain, unspecified; I35.0 Nonrheumatic aortic (valve) stenosis; D63.1 Anemia in chronic kidney disease; K29.70 Gastritis, unspecified, without bleeding; E83.42 Hypomagnesemia; Z79.899 Other long term (current) drug therapy; Z79.82 Long term (current) use of aspirin; R19.7 Diarrhea, unspecified; I80.8 Phlebitis and thrombophlebitis of other sites; Y84.1 Kidney dialysis as the cause of abnormal reaction of the patient, or of later complication, without mention of misadventure at the time of the procedure

== ENCOUNTER 2023-06-23 07:59 | Inpatient (IN) | payer MEDICARE, BC ==
[2023-06-23] VITALS (25 sets, daily range): BP systolic 74–145; BP diastolic 47–64; TEMP 96.4–98.6; O2SAT 95–100
[~2023-06-23] VITALS: Ht 172.7 cm; Wt 92.7 kg
[~2023-06-23 07:59] MED LIST changes: +ASPI-264 PO; +CEFA2PLA3 IV; +CETI-24 PO; +FLUC100T3 PO; +FLUC200T4 PO; +METO1TAB87 PO; +OMEG10002 PO; +QUNO100C PO; +RESV1TAB PO; +RISATAB3 PO; +SENS60TA PO; +SEVE800T3 PO; +TIZA1TAB12 PO; +TIZA2CAP6 PO; +VITMTA PO; +ZYRTTAB8 PO; +[UNRECOGNIZED DRUG - CODE] IV
[2023-06-23] MEDS ORDERED: PANTOPRAZOLE 40MG VIAL IV ONE (08:05)
[2023-06-23 08:34] LABS: VENOUS BASE EXCESS -5.6 (-2.0-2.0); VENOUS HCO3 19.3 MMOL/L (23.0-27.0); VENOUS O2 SATURATION 88.1 % (60.0-80.0); VENOUS PARTIAL PRESSURE CO2 34.8 mmHg (38.0-50.0); VENOUS PARTIAL PRESSURE O2 63.1 mmHg (30.0-50.0); VENOUS PH 7.362 UNITS (7.330-7.430); VENOUS STANDARD HCO3 19.7 MMOL/L; VENOUS TOTAL CO2 20.4 MMOL/L (24.0-28.0)
[2023-06-23 08:38] LABS: BASO % 0.1 % (0.0-1.0); EOS % 0.1 % (0.0-3.0); LYMPH # 0.5 10^3/uL (1.5-5.0); LYMPH % 3.3 % (24.0-44.0); MEAN CORPUSCULAR HEMOGLOBIN 31.5 pg (27.0-33.0); MEAN CORPUSCULAR HGB CONC 29.5 g/dl (32.0-36.5); MEAN CORPUSCULAR VOLUME 106.8 fl (80.0-96.0); MONO # 0.9 10^3/uL (0.0-0.8); MONO % 6.7 % (2.0-8.0); NEUTROPHILS % 88.3 % (36.0-66.0); PLATELET COUNT, AUTOMATED 318 10^3/uL (150-450); RED BLOOD COUNT 1.46 10^6/uL (4.30-6.10); WHITE BLOOD COUNT 13.6 10^3/uL (4.0-10.0)
[2023-06-23 08:48] LABS: HEMATOCRIT 15.6 % (42.0-52.0); HEMOGLOBIN 4.6 g/dl (13.5-17.5)
[2023-06-23] MEDS ORDERED: NS 250 ML IV ONE (08:50)
[2023-06-23 08:52] LABS: INR 2.51; PROTHROMBIN TIME 26.2 SECONDS (12.5-14.5)
[2023-06-23 08:53] LABS: PARTIAL THROMBOPLASTIN TIME 37.1 SECONDS (24.8-34.2)
[2023-06-23 09:02] LABS: ALBUMIN 1.8 G/DL (3.2-5.2); BILIRUBIN,TOTAL 0.2 MG/DL (0.3-1.2); CALCIUM LEVEL 9.2 MG/DL (8.3-10.6); CREATININE FOR GFR 5.75 MG/DL (0.70-1.30); GLOMERULAR FILTRATION RATE 10.7 (>49); POTASSIUM SERUM 5.2 MMOL/L (3.5-5.1); TOTAL PROTEIN 4.4 G/DL (5.7-8.2)
[2023-06-23 09:10] LABS: RSV AMPLIFICATION NEGATIVE (NEGATIVE)
[2023-06-23] MEDS ORDERED: NOREPINEPHRINE 4MG IN D5 250ML 4 MG in IV 1 EA IV SCH ×4 (09:10→09:50)
[2023-06-23] MEDS ORDERED: MED REC IN PROGRESS XX SCH (10:10)
[2023-06-23] MEDS ORDERED: ELIQ5TAB PO (11:05)
[2023-06-23] MEDS ORDERED: CLOP75TA2 PO (11:05)
[2023-06-23] MEDS ORDERED: MULT-40 PO (11:05)
[2023-06-23] MEDS ORDERED: METO50TA7 PO (11:05)
[2023-06-23] MEDS ORDERED: FERR325T19 PO (11:05)
[2023-06-23] MEDS ORDERED: HOME MED LIST COMPLETE! XX SCH (11:15)
[2023-06-23 17:55] LABS: HEMATOCRIT 25.7 % (42.0-52.0)
[2023-06-23 17:56] LABS: HEMOGLOBIN 8.6 g/dl (13.5-17.5)
[2023-06-23] MEDS ORDERED: MIRTAZAPINE 15 MG TAB PO PRN (19:45)
[2023-06-23] MEDS: SUCRALFATE SUSP 1GM/10ML UD PO SCH (21:36)
[2023-06-23] MEDS: PANTOPRAZOLE 40MG VIAL IV SCH (21:36)
[2023-06-24] VITALS (11 sets, daily range): BP systolic 99–126; BP diastolic 55–70; TEMP 96.8–98.7; O2SAT 93–99
[2023-06-24] MEDS ORDERED: PILL CUTTER 1 EACH XX PRN (00:35)
[2023-06-24] MEDS: tiZANidine 4 MG TAB PO SCH ×2 (00:38→20:17)
[2023-06-24 05:42] LABS: BASO # 0.1 10^3/uL (0.0-0.2); BASO % 0.4 % (0.0-1.0); EOS # 0.3 10^3/uL (0.0-0.5); EOS % 1.8 % (0.0-3.0); HEMATOCRIT 22.8 % (42.0-52.0); HEMOGLOBIN 7.7 g/dl (13.5-17.5); LYMPH # 1.1 10^3/uL (1.5-5.0); LYMPH % 7.4 % (24.0-44.0); MEAN CORPUSCULAR HEMOGLOBIN 30.6 pg (27.0-33.0); MEAN CORPUSCULAR HGB CONC 33.8 g/dl (32.0-36.5); MEAN CORPUSCULAR VOLUME 90.5 fl (80.0-96.0); MONO # 1.4 10^3/uL (0.0-0.8); MONO % 9.6 % (2.0-8.0); NEUTROPHILS # 11.3 10^3/uL (1.5-8.5); NEUTROPHILS % 79.5 % (36.0-66.0); PLATELET COUNT, AUTOMATED 298 10^3/uL (150-450); RED BLOOD COUNT 2.52 10^6/uL (4.30-6.10); WHITE BLOOD COUNT 14.2 10^3/uL (4.0-10.0)
[2023-06-24] MEDS: SUCRALFATE SUSP 1GM/10ML UD PO SCH ×3 (05:58→21:58)
[2023-06-24 06:08] LABS: ALBUMIN 2.1 G/DL (3.2-5.2); BILIRUBIN,TOTAL 0.6 MG/DL (0.3-1.2); CALCIUM LEVEL 10.2 MG/DL (8.3-10.6); FREE T4 0.9 NG/DL (0.89-1.76); GLOMERULAR FILTRATION RATE 8.5 (>49); MAGNESIUM LEVEL 2.1 MG/DL (1.8-2.4); PHOSPHORUS LEVEL 3.9 MG/DL (2.4-5.1); POTASSIUM SERUM 4.8 MMOL/L (3.5-5.1); THYROID STIMULATING HORMONE 2.155 uIU/ML (0.55-4.78); TOTAL PROTEIN 4.8 G/DL (5.7-8.2)
[2023-06-24] MEDS ORDERED: SODIUM CHLORIDE 0.9% 1000ML IV PRN (06:55)
[2023-06-24] MEDS ORDERED: HEPARIN 1,000UNITS/ML 10ML VIAL (FOR RADIOLOGY & DIALYSIS ONLY) XX SCH (06:55)
[2023-06-24] MEDS ORDERED: HEPARIN 1,000UNITS/ML 10ML VIAL (FOR RADIOLOGY & DIALYSIS ONLY) IV PRN (06:55)
[2023-06-24] MEDS: PANTOPRAZOLE 40MG VIAL IV SCH ×2 (08:55→20:17)
[2023-06-25] VITALS (12 sets, daily range): BP systolic 102–122; BP diastolic 60–71; TEMP 97–98.3; O2SAT 93–99
[2023-06-25] MEDS: SUCRALFATE SUSP 1GM/10ML UD PO SCH ×4 (06:00→21:55)
[2023-06-25 06:09] LABS: HEMOGLOBIN 7.3 g/dl (13.5-17.5); MEAN CORPUSCULAR HEMOGLOBIN 30.2 pg (27.0-33.0); MEAN CORPUSCULAR HGB CONC 31.7 g/dl (32.0-36.5); PLATELET COUNT, AUTOMATED 282 10^3/uL (150-450); RED BLOOD COUNT 2.42 10^6/uL (4.30-6.10); WHITE BLOOD COUNT 10.5 10^3/uL (4.0-10.0)
[2023-06-25 06:33] LABS: ALBUMIN 2.1 G/DL (3.2-5.2); BILIRUBIN,TOTAL 0.7 MG/DL (0.3-1.2); CALCIUM LEVEL 10.3 MG/DL (8.3-10.6); CREATININE FOR GFR 4.6 MG/DL (0.70-1.30); GLOMERULAR FILTRATION RATE 13.8 (>49); POTASSIUM SERUM 4.3 MMOL/L (3.5-5.1); TOTAL PROTEIN 4.6 G/DL (5.7-8.2)
[2023-06-25] MEDS: PANTOPRAZOLE 40MG VIAL IV SCH ×2 (10:33→21:38)
[2023-06-25 18:06] LABS: HEMATOCRIT 29.4 % (42.0-52.0)
[2023-06-25 18:11] LABS: HEMOGLOBIN 9.7 g/dl (13.5-17.5)
[2023-06-25] MEDS: tiZANidine 4 MG TAB PO SCH (21:38)
[2023-06-26] VITALS (10 sets, daily range): BP systolic 80–118; BP diastolic 52–72; TEMP 97.2–98.4; O2SAT 94–98
[2023-06-26 00:17] LABS: HEMATOCRIT 25.5 % (42.0-52.0); HEMOGLOBIN 8.2 g/dl (13.5-17.5)
[2023-06-26 05:01] LABS: HEMATOCRIT 27.6 % (42.0-52.0); HEMOGLOBIN 8.8 g/dl (13.5-17.5); MEAN CORPUSCULAR HEMOGLOBIN 30.3 pg (27.0-33.0); MEAN CORPUSCULAR HGB CONC 31.9 g/dl (32.0-36.5); MEAN CORPUSCULAR VOLUME 95.2 fl (80.0-96.0); PLATELET COUNT, AUTOMATED 284 10^3/uL (150-450)
[2023-06-26 05:11] LABS: INR 1.29; PROTHROMBIN TIME 15.7 SECONDS (12.5-14.5)
[2023-06-26 05:12] LABS: PARTIAL THROMBOPLASTIN TIME 32.8 SECONDS (24.8-34.2)
[2023-06-26 05:27] LABS: ALBUMIN 2.1 G/DL (3.2-5.2); BILIRUBIN,TOTAL 0.8 MG/DL (0.3-1.2); CALCIUM LEVEL 9.9 MG/DL (8.3-10.6); CREATININE FOR GFR 6.03 MG/DL (0.70-1.30); GLOMERULAR FILTRATION RATE 10.1 (>49); POTASSIUM SERUM 4.7 MMOL/L (3.5-5.1); TOTAL PROTEIN 4.7 G/DL (5.7-8.2)
[2023-06-26] MEDS: SUCRALFATE SUSP 1GM/10ML UD PO SCH ×3 (06:00→22:00)
[2023-06-26] MEDS ORDERED: HEPARIN 1,000UNITS/ML 10ML VIAL (FOR RADIOLOGY & DIALYSIS ONLY) XX SCH (06:50)
[2023-06-26] MEDS ORDERED: HEPARIN 1,000UNITS/ML 10ML VIAL (FOR RADIOLOGY & DIALYSIS ONLY) IV PRN (06:50)
[2023-06-26] MEDS ORDERED: SODIUM CHLORIDE 0.9% 1000ML IV PRN (06:50)
[2023-06-26] MEDS: PANTOPRAZOLE 40MG VIAL IV SCH ×2 (08:53→23:01)
[2023-06-26] MEDS ORDERED: NS 500 ML IV ONE (20:25)
[2023-06-26] MEDS: tiZANidine 4 MG TAB PO SCH (23:01)
[2023-06-27] VITALS (8 sets, daily range): BP systolic 97–128; BP diastolic 54–76; TEMP 96.9–98.3; O2SAT 96–99
[2023-06-27] MEDS: SUCRALFATE SUSP 1GM/10ML UD PO SCH ×3 (05:48→21:57)
[2023-06-27 06:08] LABS: HEMATOCRIT 25.4 % (42.0-52.0); HEMOGLOBIN 8.1 g/dl (13.5-17.5); MEAN CORPUSCULAR HEMOGLOBIN 30.9 pg (27.0-33.0); MEAN CORPUSCULAR HGB CONC 31.9 g/dl (32.0-36.5); MEAN CORPUSCULAR VOLUME 96.9 fl (80.0-96.0); PLATELET COUNT, AUTOMATED 241 10^3/uL (150-450); RED BLOOD COUNT 2.62 10^6/uL (4.30-6.10); WHITE BLOOD COUNT 8.7 10^3/uL (4.0-10.0)
[2023-06-27 06:33] LABS: ALKALINE PHOSPHATASE 110 U/L (46-116); ALT/SGPT 10 U/L (7.0-40); AST/SGOT < 8 U/L (<34); BILIRUBIN,TOTAL 0.8 MG/DL (0.3-1.2); BLOOD UREA NITROGEN 40 MG/DL (9-23); CALCIUM LEVEL 9.4 MG/DL (8.3-10.6); CARBON DIOXIDE LEVEL 26 MMOL/L (20-31); CHLORIDE LEVEL 106 MMOL/L (98-107); CREATININE FOR GFR 4.25 MG/DL (0.70-1.30); GLOMERULAR FILTRATION RATE 15.1 (>49); GLUCOSE, FASTING 91 MG/DL (74-106); POTASSIUM SERUM 4.3 MMOL/L (3.5-5.1); SODIUM LEVEL 139 MMOL/L (136-145); TOTAL PROTEIN 4.7 G/DL (5.7-8.2)
[2023-06-27] MEDS: PANTOPRAZOLE 40MG VIAL IV SCH ×2 (08:44→21:56)
[2023-06-27] MEDS ORDERED: FLEET ENEMA PR PRN (13:00)
[2023-06-27] MEDS ORDERED: LIDOCAINE 2% 100MG/5ML SDV (FOR ANES.) As Ordered ONE (14:48)
[2023-06-27] MEDS ORDERED: propofoL 200 MG/20 ML VIAL As Ordered ONE (14:48)
[2023-06-27] MEDS ORDERED: fentaNYL 100 MCG/2 ML INJECTION As Ordered ONE (14:49)
[2023-06-27] MEDS ORDERED: NS 1,000 ML IV ONE (15:00)
[2023-06-27] MEDS: MIRALAX *UNIT DOSE* 17GM PACKET PO SCH (21:00)
[2023-06-27] MEDS: tiZANidine 4 MG TAB PO SCH (21:56)
[2023-06-28 03:39] VITALS: BP 94/58; TEMP 97.2; O2SAT 98
[2023-06-28 05:19] LABS: HEMATOCRIT 27.7 % (42.0-52.0); MEAN CORPUSCULAR HEMOGLOBIN 31.4 pg (27.0-33.0); MEAN CORPUSCULAR HGB CONC 32.5 g/dl (32.0-36.5); MEAN CORPUSCULAR VOLUME 96.5 fl (80.0-96.0); PLATELET COUNT, AUTOMATED 256 10^3/uL (150-450); RED BLOOD COUNT 2.87 10^6/uL (4.30-6.10); WHITE BLOOD COUNT 8.7 10^3/uL (4.0-10.0)
[2023-06-28 05:42] LABS: ALBUMIN 2.1 G/DL (3.2-5.2); BILIRUBIN,TOTAL 0.8 MG/DL (0.3-1.2); CALCIUM LEVEL 9.2 MG/DL (8.3-10.6); CREATININE FOR GFR 5.89 MG/DL (0.70-1.30); GLOMERULAR FILTRATION RATE 10.4 (>49); TOTAL PROTEIN 4.5 G/DL (5.7-8.2)
[2023-06-28] MEDS: SUCRALFATE SUSP 1GM/10ML UD PO SCH ×3 (05:42→21:14)
[2023-06-28] MEDS ORDERED: SODIUM CHLORIDE 0.9% 1000ML IV PRN (06:40)
[2023-06-28] MEDS ORDERED: HEPARIN 1,000UNITS/ML 10ML VIAL (FOR RADIOLOGY & DIALYSIS ONLY) XX SCH (06:40)
[2023-06-28 08:11] VITALS: BP 117/62; TEMP 97.8; O2SAT 97
[2023-06-28] MEDS: MIRALAX *UNIT DOSE* 17GM PACKET PO SCH ×2 (09:00→21:13)
[2023-06-28 12:24] VITALS: BP 106/59; TEMP 96.8; O2SAT 97
[2023-06-28] MEDS: PANTOPRAZOLE 40MG VIAL IV SCH ×2 (12:36→21:14)
[2023-06-28 16:09] VITALS: BP 100/58; TEMP 97.5; O2SAT 92
[2023-06-28 19:11] VITALS: BP 100/56; TEMP 97.6; O2SAT 96
[2023-06-28] MEDS: tiZANidine 4 MG TAB PO SCH (21:13)
[2023-06-29] VITALS: BP 102/58; TEMP 97.1; O2SAT 100
[2023-06-29 04:00] VITALS: BP 100/60; TEMP 97; O2SAT 96
[2023-06-29 05:33] LABS: HEMATOCRIT 28.4 % (42.0-52.0); HEMOGLOBIN 9.2 g/dl (13.5-17.5); MEAN CORPUSCULAR HEMOGLOBIN 31.4 pg (27.0-33.0); MEAN CORPUSCULAR HGB CONC 32.4 g/dl (32.0-36.5); MEAN CORPUSCULAR VOLUME 96.9 fl (80.0-96.0); PLATELET COUNT, AUTOMATED 245 10^3/uL (150-450); RED BLOOD COUNT 2.93 10^6/uL (4.30-6.10); WHITE BLOOD COUNT 7.9 10^3/uL (4.0-10.0)
[2023-06-29 06:01] LABS: ALBUMIN 2.1 G/DL (3.2-5.2); BILIRUBIN,TOTAL 0.7 MG/DL (0.3-1.2); CALCIUM LEVEL 9.4 MG/DL (8.3-10.6); CREATININE FOR GFR 4.16 MG/DL (0.70-1.30); GLOMERULAR FILTRATION RATE 15.5 (>49); POTASSIUM SERUM 3.7 MMOL/L (3.5-5.1); TOTAL PROTEIN 4.9 G/DL (5.7-8.2)
[2023-06-29] MEDS: SUCRALFATE SUSP 1GM/10ML UD PO SCH ×3 (06:03→21:15)
[2023-06-29 07:54] VITALS: BP 113/57; TEMP 96.7; O2SAT 97
[2023-06-29] MEDS: PANTOPRAZOLE 40MG VIAL IV SCH ×2 (10:16→21:14)
[2023-06-29] MEDS: MIRALAX *UNIT DOSE* 17GM PACKET PO SCH ×2 (10:16→21:15)
[2023-06-29 12:21] VITALS: BP 151/80; TEMP 97.3; O2SAT 98
[2023-06-29 16:19] VITALS: BP 134/69; TEMP 97; O2SAT 100
[2023-06-29 20:00] VITALS: BP 94/62; TEMP 97.2; O2SAT 98
[2023-06-29] MEDS: tiZANidine 4 MG TAB PO SCH (21:14)
[2023-06-30] VITALS: BP 98/63; TEMP 97.2; O2SAT 99
[2023-06-30 04:00] VITALS: BP 100/64; TEMP 97.5; O2SAT 98
[2023-06-30] MEDS: SUCRALFATE SUSP 1GM/10ML UD PO SCH ×2 (05:12→14:21)
[2023-06-30 05:49] LABS: HEMATOCRIT 31.4 % (42.0-52.0); MEAN CORPUSCULAR HGB CONC 31.8 g/dl (32.0-36.5); MEAN CORPUSCULAR VOLUME 97.2 fl (80.0-96.0); PLATELET COUNT, AUTOMATED 301 10^3/uL (150-450); RED BLOOD COUNT 3.23 10^6/uL (4.30-6.10); WHITE BLOOD COUNT 9.1 10^3/uL (4.0-10.0)
[2023-06-30 06:23] LABS: ALBUMIN 2.4 G/DL (3.2-5.2); BILIRUBIN,TOTAL 0.5 MG/DL (0.3-1.2); CALCIUM LEVEL 9.9 MG/DL (8.3-10.6); CREATININE FOR GFR 5.73 MG/DL (0.70-1.30); GLOMERULAR FILTRATION RATE 10.7 (>49); POTASSIUM SERUM 4.1 MMOL/L (3.5-5.1); TOTAL PROTEIN 5.6 G/DL (5.7-8.2)
[2023-06-30] MEDS ORDERED: HEPARIN 1,000UNITS/ML 10ML VIAL (FOR RADIOLOGY & DIALYSIS ONLY) XX SCH (06:40)
[2023-06-30] MEDS ORDERED: SODIUM CHLORIDE 0.9% 1000ML IV PRN (06:40)
[2023-06-30] MEDS ORDERED: HEPARIN 1,000UNITS/ML 10ML VIAL (FOR RADIOLOGY & DIALYSIS ONLY) IV PRN (06:40)
[2023-06-30 07:34] VITALS: BP 109/71; TEMP 97; O2SAT 96
[2023-06-30] MEDS: PANTOPRAZOLE 40MG VIAL IV SCH (12:19)
[2023-06-30] MEDS: MIRALAX *UNIT DOSE* 17GM PACKET PO SCH (12:19)
[2023-06-30 12:22] VITALS: BP 102/68; TEMP 97.2; O2SAT 97
[2023-06-30] MEDS ORDERED: PROT1TAB2 PO (17:48)
[2023-06-30] MEDS ORDERED: SUCR1ORA PO (17:48)
[2023-06-30 19:55] VITALS: BP 94/58; TEMP 97.1; O2SAT 96
== END 2023-06-30 20:17 | disposition short-term general hospital (02) | DRG 377 ==
LOC: M ED 07:59 → M ED INP 09:50 → ENRESERV 10:15 → M ICU 10:49 → M PCU 06-24 14:14
PROVIDERS: ADMIT Internal Medicine Pulmonary Disease; ATTEND General Practice
PROC: 30233N1 Transfusion of Nonautologous Red Blood Cells into Peripheral Vein, Percutaneous Approach (ICD-10-PCS; 2023-06-23)
PROC: 0DJD8ZZ Inspection of Lower Intestinal Tract, Via Natural or Artificial Opening Endoscopic (ICD-10-PCS; 2023-06-27)
PROC: 0W3P8ZZ Control Bleeding in Gastrointestinal Tract, Via Natural or Artificial Opening Endoscopic (ICD-10-PCS; principal; 2023-06-27 15:00)
DX: K92.1 Melena (principal); R57.8 Other shock; N18.6 End stage renal disease; I26.93 Single subsegmental thrombotic pulmonary embolism without acute cor pulmonale; D62 Acute posthemorrhagic anemia; I13.2 Hypertensive heart and chronic kidney disease with heart failure and with stage 5 chronic kidney disease, or end stage renal disease; E87.20 Acidosis, unspecified; I50.22 Chronic systolic (congestive) heart failure; D68.32 Hemorrhagic disorder due to extrinsic circulating anticoagulants; N05.2 Unspecified nephritic syndrome with diffuse membranous glomerulonephritis; I25.2 Old myocardial infarction; E87.5 Hyperkalemia; K31.819 Angiodysplasia of stomach and duodenum without bleeding; I08.3 Combined rheumatic disorders of mitral, aortic and tricuspid valves; E78.5 Hyperlipidemia, unspecified; E04.1 Nontoxic single thyroid nodule; D72.829 Elevated white blood cell count, unspecified; I27.20 Pulmonary hypertension, unspecified; I44.7 Left bundle-branch block, unspecified; Z99.2 Dependence on renal dialysis; Z79.01 Long term (current) use of anticoagulants; I95.9 Hypotension, unspecified; Z79.899 Other long term (current) drug therapy; K57.10 Diverticulosis of small intestine without perforation or abscess without bleeding; K29.70 Gastritis, unspecified, without bleeding

== ENCOUNTER 2024-07-24 14:22 | Observation (INO) | payer MEDICARE, BC ==
[~2024-07-24] VITALS: Ht 167.6 cm; Wt 84.7 kg
[~2024-07-24 14:22] MED LIST changes: +CLOP75TA2 PO; +ELIQ5TAB PO; +FERR325T19 PO; +FLUC-1 PO; -FLUC200T4 PO; +METO50TA7 PO; +MULT-40 PO; +PROT1TAB2 PO; +ROSU5TAB49 PO; -ROSU5TAB5 PO; +SUCR1ORA PO; +TIZA2CAP3 PO; -TIZA2CAP6 PO; +[UNRECOGNIZED DRUG - CODE] IV; -[UNRECOGNIZED DRUG - CODE] IV
[2024-07-24 14:58] LABS: BASO % 0.4 % (0.0-1.0); EOS # 0.2 10^3/uL (0.0-0.5); EOS % 2.1 % (0.0-3.0); HEMATOCRIT 40.5 % (42.0-52.0); LYMPH # 0.5 10^3/uL (1.5-5.0); LYMPH % 6.4 % (24.0-44.0); MEAN CORPUSCULAR HEMOGLOBIN 32.3 pg (27.0-33.0); MEAN CORPUSCULAR HGB CONC 32.1 g/dl (32.0-36.5); MEAN CORPUSCULAR VOLUME 100.7 fl (80.0-96.0); MONO # 0.8 10^3/uL (0.0-0.8); MONO % 10.6 % (2.0-8.0); NEUTROPHILS # 5.8 10^3/uL (1.5-8.5); NEUTROPHILS % 80.2 % (36.0-66.0); PLATELET COUNT, AUTOMATED 172 10^3/uL (150-450); RED BLOOD COUNT 4.02 10^6/uL (4.30-6.10); WHITE BLOOD COUNT 7.2 10^3/uL (4.0-10.0)
[2024-07-24 15:25] LABS: CK-MB VALUE MASS 1.7 NG/ML (<3.6)
[2024-07-24 15:27] LABS: CALCIUM LEVEL 9.9 MG/DL (8.3-10.6); CREATININE FOR GFR 4.1 MG/DL (0.70-1.30); GLOMERULAR FILTRATION RATE 15.7 (>49); MB/CK RELATIVE INDEX 2.88 (< OR =4); POTASSIUM SERUM 3.9 MMOL/L (3.5-5.1)
[2024-07-24 16:25] LABS: CK-MB VALUE MASS 1.8 NG/ML (<3.6); MB/CK RELATIVE INDEX 3.21 (< OR =4)
[2024-07-24] MEDS ORDERED: ACETAMINOPHEN 325 MG TAB PO PRN (19:25)
[2024-07-24 21:01] LABS: ALBUMIN 3.7 G/DL (3.2-5.2); BILIRUBIN,DIRECT 0.5 MG/DL (<0.4); BILIRUBIN,TOTAL 1.3 MG/DL (0.3-1.2); MAGNESIUM LEVEL 2.5 MG/DL (1.8-2.4); TOTAL PROTEIN 7.1 G/DL (5.7-8.2)
[2024-07-24] MEDS ORDERED: METO1TAB87 PO (21:02)
[2024-07-24] MEDS ORDERED: TIZA2TA PO (21:02)
[2024-07-24] MEDS ORDERED: TRIA1CR80 TOP (21:02)
[2024-07-24] MEDS ORDERED: COEN100T PO (21:04)
[2024-07-24] MEDS ORDERED: HOME MED LIST COMPLETE! XX SCH (21:05)
[2024-07-24 22:43] VITALS: BP 110/63; TEMP 97.3; O2SAT 99
[2024-07-24 23:05] VITALS: O2SAT 99
[2024-07-24] MEDS: DOCUSATE SODIUM 100MG CAPSULE PO SCH (23:30)
[2024-07-25 00:50] VITALS: BP 115/72; TEMP 96.8; O2SAT 95
[2024-07-25 03:10] VITALS: BP 111/68; TEMP 97; O2SAT 95
[2024-07-25 05:57] LABS: HEMATOCRIT 37.2 % (42.0-52.0); HEMOGLOBIN 11.9 g/dl (13.5-17.5); MEAN CORPUSCULAR HEMOGLOBIN 31.9 pg (27.0-33.0); MEAN CORPUSCULAR VOLUME 99.7 fl (80.0-96.0); PLATELET COUNT, AUTOMATED 168 10^3/uL (150-450); RED BLOOD COUNT 3.73 10^6/uL (4.30-6.10)
[2024-07-25] MEDS ORDERED: LIDOCAINE 1% SDV 5ML VIAL SC PRN (06:00)
[2024-07-25] MEDS ORDERED: SODIUM CHLORIDE 0.9% 1000 ML IV PRN (06:00)
[2024-07-25] MEDS ORDERED: HEPARIN 1,000UNITS/ML 10ML VIAL (FOR RADIOLOGY & DIALYSIS ONLY) IV PRN (06:00)
[2024-07-25 06:20] LABS: ALBUMIN 3.4 G/DL (3.2-5.2); BLOOD UREA NITROGEN 23 MG/DL (9-23); CALCIUM LEVEL 10.1 MG/DL (8.3-10.6); CARBON DIOXIDE LEVEL 29 MMOL/L (20-31); CHLORIDE LEVEL 99 MMOL/L (98-107); CREATININE FOR GFR 5.43 MG/DL (0.70-1.30); GLOMERULAR FILTRATION RATE 11.4 (>49); GLUCOSE, FASTING 111 MG/DL (74-106); MAGNESIUM LEVEL 2.6 MG/DL (1.8-2.4); PHOSPHORUS LEVEL 4.1 MG/DL (2.4-5.1); POTASSIUM SERUM 3.9 MMOL/L (3.5-5.1); SODIUM LEVEL 141 MMOL/L (136-145)
[2024-07-25 08:00] VITALS: BP 112/70; TEMP 97.7; O2SAT 96
[2024-07-25] MEDS: HEPARIN 1,000UNITS/ML 10ML VIAL (FOR RADIOLOGY & DIALYSIS ONLY) XX SCH (09:31)
[2024-07-25 11:33] LABS: HEPATITIS B SURFACE ANTIGEN NEGATIVE (NEGATIVE)
[2024-07-25 11:40] LABS: HEPATITIS B SURFACE ANTIBODY POSITIVE (POSITIVE)
[2024-07-25 11:54] LABS: HEPATITIS B CORE ANTIBODY IGM NEGATIVE (NEGATIVE); HEPATITIS C VIRUS ABY INDEX 0.14 INDEX (<0.8)
[2024-07-25 12:26] VITALS: BP 135/78; TEMP 97; O2SAT 99
[2024-07-25] MEDS: HEPARIN SOD (PORCINE) 5000UNITS/ML 1ML VIAL/SYRINGE SC SCH (12:46)
[2024-07-25 16:00] VITALS: BP 124/76; TEMP 97.7; O2SAT 98
== END 2024-07-25 17:14 | disposition home or self-care (01) ==
LOC: M ED 14:22 → M ED INP 14:23 → M MSPAV 22:24
PROVIDERS: ADMIT Family Medicine; ATTEND Student in an Organized Health Care Education/Training Program
DX: E87.70 Fluid overload, unspecified (principal); J91.8 Pleural effusion in other conditions classified elsewhere; N18.6 End stage renal disease; I50.9 Heart failure, unspecified; I25.10 Atherosclerotic heart disease of native coronary artery without angina pectoris; E78.5 Hyperlipidemia, unspecified; I35.0 Nonrheumatic aortic (valve) stenosis; I27.20 Pulmonary hypertension, unspecified; D63.8 Anemia in other chronic diseases classified elsewhere; D72.829 Elevated white blood cell count, unspecified; Z86.711 Personal history of pulmonary embolism; Z79.899 Other long term (current) drug therapy
CPT/HCPCS: 36415; 71045; 80048; 80069; 80076; 82550; 82553; 83735; 83880; 84484; 85025; 85027; 86704; 86705; 86706; 86803; 87340; 93005; 93041; 94760; 99285; G0257; G0378

== ENCOUNTER 2025-02-27 06:28 | Day surgery (SDC) | payer MEDICARE, BC ==
[~2025-02-27] VITALS: Ht 170.2 cm; Wt 79.4 kg
[~2025-02-27 06:28] MED LIST changes: +COEN100T PO; +ECOT81TA5 PO; +ROSU20TA86 PO; +SACUBITRIL-VALSARTAN PO; +TIZA2TA PO; +TRIA1CR80 TOP
[2025-02-27 08:42] VITALS: TEMP 96.9
[2025-02-27 08:54] VITALS: BP 166/84; O2SAT 99
== END 2025-02-27 09:00 | disposition home or self-care (01) ==
LOC: M OPP 06:28
PROVIDERS: ATTEND Internal Medicine Gastroenterology
DX: Z12.11 Encounter for screening for malignant neoplasm of colon (principal); D12.2 Benign neoplasm of ascending colon; K57.30 Diverticulosis of large intestine without perforation or abscess without bleeding; Z79.82 Long term (current) use of aspirin; Z79.899 Other long term (current) drug therapy; Z86.711 Personal history of pulmonary embolism